=== PATIENT | female | born 1995 | race Caucasian/White ===

== ENCOUNTER 2019-07-20 12:30 | Outpatient (RCR) | payer OTHER, SELFPAY ==
--- NOTE | 2019-04-22 08:47 | PTOPEVAL ---
PHYSICAL THERAPY EVALUATION AND PLAN OF CARE 04-22-2019 The evaluation was completed today for the diagnosis of s/p R shoulder arthroscopy. The plan of treatment is scheduled for 1-2 x/week for 6 weeks, then she will require a re-evaluation for insurance authorization for treatment. Treatment will follow the protocol provided. Thank you for referring Ms. Whitfield to [facility]. Please review, sign, date and return this plan of care CARA. I agree with and certify that the following plan of care is medically necessary. Referring Physician Date Attending Provider: Dr. Ronn Lei *PT Outpatient Evaluation Start: 04/22/19 07:42 Document 04/22/19 07:42 JOSE LUIS (Rec: 04/22/19 08:42 JOSE LUIS [id number]) Outpatient Past Medical History Neurological History Hx Neurological Disorders No Significant History Cardiovascular History Hx Cardiac Disorders No Significant History Respiratory History Hx Respiratory Disorders No Significant History Gastrointestinal History Hx Gastrointestinal Disorders No Significant History Genitourinary History Hx Genitourinary Disorders No Significant History Musculoskeletal History Hx Other Musculoskeletal Disorders Yes: R shoulder pain since injury;obesity Hematological History Hx Hematological Disorders No Significant History Endocrine History Hx Endocrine Disorders No Significant History HEENT History Hx Tonsillectomy Yes: as child Integumentary History Hx Skin Disorders No Significant History Reproductive History Hx Section Yes Hx Other Reproductive Disorders Yes: Evaluation Information Problem Diagnosis R shoulder arthroscopy Onset Apr 15, 2019 Subjective Information injury to shoulder August 25, Query Text:As Reported By Patient/ 2018, at work reaching out and Family lifting something; was on light duty at work; worked until prior to this surgery on light duty--no lift over 10#; pt stated per discharge instructions: dressing can be removed after 3 days; has been showering, with incision covered; wear sling and remove few times/day to move arm; continue ice use; Previous Treatments Previous Treatments For This Problem had one month PT after initial injury;not better, had MRI and injections Prior Level of Function Activity Level (Last 3 Months) 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
--- NOTE | 2019-05-11 11:46 | PCPTNOTE ---
Patient called & cancelled scheduled appointment this date no reason given
--- NOTE | 2019-05-18 11:56 | PCPTNOTE ---
Patient called & cancelled scheduled appointment this date no reason stated
--- NOTE | 2019-06-01 13:09 | PCPTNOTE ---
pt called and canceled today's treatment due to ill child;
[2019-06-03 12:35] VITALS: BP_SYST 110
--- NOTE | 2019-06-03 13:13 | PTOPEVAL ---
PHYSICAL THERAPY RE EVALUATION AND UPDATED PLAN OF CARE 06-03-2019 Rosette has received 7 Physical Therapy sessions, from April 22 to today, s/p R shoulder arthroscopy. She called/canceled 3 appointments due to a sick child. She has improved with decreased pain rating at the low and high ratings; increased sleep tolerance and increased ROM of all shoulder motions. Rosette has been receptive to education and doing her home exercises. 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 PT is to continue 1-2x/week for 5 weeks, with progression of activity and strengthening per protocol. Thank you for referring Ms. Whitfield to [facility]. Please review, sign, date and return this plan of care CARA. I agree with and certify that the following plan of care is medically necessary. Referring Physician Date Attending Provider: Dr. Ronn Lei *PT Outpatient Re-Evaluation Document 06/03/19 12:35 JOSE LUIS (Rec: 06/03/19 13:13 JOSE LUIS [id number]) Subjective Information Rosette reports: is not Query Text:As Reported By Patient/ wearing a bra, wearing Family bralette due to softer strap and more inward, so not hit across her shoulder; been using arm- have to with daily things and caring for her 3 yr old child; been doing exercises and stretching; electrical stim helps pain; taping helps too; Pain Assessment Timing of Pain Assessment Timing of Pain Assessment Assessment Pain Scale Pain Scale Used Numeric (1 - 10) Self Report Pain Assessment Right Shoulder(s) Reported Pain Level 4 Pain Description Aching,Sharp Radicular Pain Location tight over upper traps- discuss heat PRN use neck; anterior shoulder Pain Frequency Chronic Current Pain Intensity 4 Lowest Pain Intensity 3 Greatest Pain Intensity 8 Pain Level Goal 0 Pain Aggravating Factors Exercise/Activity Other Pain Aggravating Factors use of arm, end of the day Pain Behaviors Anxious Pain Relief Interventions Used By Ice,Inactivity/Rest,Medication Patient ,Support of Extremity Other Alleviating Interventions tylenol Additional Pain Comments awaken from sleep 2x/night due to shoulder pain; Pain Score Pain Score 4: Self Report Upper Extremity Range of Motion Scapular/ Shoulder Range of Motion Right Shoulder Flexion - Active 100 Shoulder Flexion - Passive 120 Shoulder Extension - Active 10 Shoulder Abduction - Active 80 Shoulder Abduction - Passive 110 Shoulder Medial Rotation - Active 40 Shoulder M
--- NOTE | 2019-06-23 13:09 | PCPTNOTE ---
Patient called & cancelled scheduled appointment this date stating she was unable to make it.
--- NOTE | 2019-06-25 16:08 | PCPTNOTE ---
Patient did not show up for scheduled appointment this date.
--- NOTE | 2019-07-06 11:39 | PCPTNOTE ---
pt called and canceled today's reevaluation;
--- NOTE | 2019-07-13 08:49 | PCPTNOTE ---
pt called and canceled today's reeval due to not having child care education coordinator; rescheduled for next week;
--- NOTE | 2019-07-20 13:13 | PTOPEVAL ---
PHYSICAL THERAPY REEVALUATION AND UPDATED PLAN OF CARE 07-20-2019 Ms. Ceja has received 11 PT sessions, from April 22 to today, s/p R shoulder surgery. She called and canceled 7 PT appointments. Compared to last reevaluation on 06-03-2019: pain rating at the worst rating is better/ lower rating the same; sleeping still disrupted 2-3x/night awakening due pain; active ROM and strength have increased in all shoulder ranges; with B UE Lifting, 8# was her maximum lift and with R only flexion and abduction was 2# hand wt. 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 PT is to continue 2x/week for 3 weeks, to further increase her R shoulder strength for return to work duties and decrease pain. Thank you for referring Rosette Whitfield to [facility]. Please review, sign, date and return this up dated plan of care [facility]. I agree with and certify that the following plan of care is medically necessary. Referring Physician Date Attending Provider: Dr. 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 [employer], lifting varies- at 50 # is supposed to ask for help Pain Assessment Timing of Pain Assessment Timing of Pain Assessment Assessment Pain Scale Pain Scale Used Numeric (1 - 10) Self Report Pain Assessment Right Shoulder(s) Reported Pain Level 4 Pain Description Dull Radicular Pain Location sharp pain anterior shoulder, more ache in the back of shoulder Pain Frequency Acute Lowest Pain Intensity 4 Greatest Pain Intensity 6 Other Pain Aggravating Factors end of day, push on R arm, lifting, use arm alot, unable to vacuum with R Pain Relief Interventions Used By Elevation,Heat,Ice,Medication Patient Other Alleviating Interventions at end session-stim & ice to ease pain Additional Pain Comments wearing bra OK; difficult to change baby's diaper;tylenol helps PRN take Pain Score Pain Score 4: Self Report Upper Extremity Range of Motion Scapular/ Shoulder Range of Motion Right Shoulder Flexion - Active
--- NOTE | 2019-07-26 15:27 | PCPTNOTE ---
This treatment is being continued on visit number [id number]. Please see documentation on both accounts to view progress. Completed interventions, outcomes, and problems have been marked as Inactive to facilitate the copying of the Care plan routine for recurring accounts.
== END 2019-07-21 23:59 | disposition home or self-care (01) ==
LOC: ANHPT 12:30
PROVIDERS: PCP Family Medicine
DX: M25.511 Pain in right shoulder (principal)
CPT/HCPCS: 97014; 97110; 97140; 97161; G0283

== ENCOUNTER 2019-08-18 13:30 | Outpatient (RCR) | payer OTHER, SELFPAY ==
[2019-07-22 00:04] VITALS: BP_SYST 110
--- NOTE | 2019-07-26 15:31 | PCPTNOTE ---
continue PT from previous # [id number]. plan of care and treatment continued onto this #; refer to both for her complete EMR;
--- NOTE | 2019-08-18 14:09 | PTOPEVAL ---
PHYSICAL THERAPY DISCHARGE 08-18-2019 Rosette has received a total of 14 PT sessions, from April 22 to today, s/p R shoulder surgery. She called and canceled a total of 8 appointments. Compared to the last reevaluation: pain rating at the high rating is the same and the least rating has improved from 4/10 to 2/10; reported sleeping and activity tolerance has improved; R shoulder AROM is WNL and strength has improved; B UE lifting from floor/waist height has improved from 8# to 20#; her home exercise program has been progressed to resistance/ strengthening activities. Ms. Whitfield is independent with her home exercises, is to continue with them and agrees to discharge from PT services. She reports that she has a release to return to work on August 29, but is not able to due to not having childhood teacher. Due to the [place] virus restrictions, her day care is full and not able to take her daughter. Thank you for referring Rosette Whitfield to [facility]. Please review, sign, date and return this discharge CARA. I agree with and certify that the following plan of care is medically necessary. Referring Physician Date Admitting Provider: Attending Provider: Dr. Ronn Lei Document 08/18/19 13:30 JOSE LUIS (Rec: 08/18/19 14:02 JOSE LUIS [id number]) Assessment Status Discharge Subjective Information Roestte reports: hurt shoulder Query Text:As Reported By Patient/ , sore today due to moving Family furniture, got a new mattress; problems with vacuuming and not able to burr picker 45# daughter; have a work release for August 29, but not able to return to work due to not having childcare- due to coronavirus, dayasae cannot take her child; agrees to discharge from PT and to continue with her exercises at home, with hand wt or theraband. Pain Assessment Timing of Pain Assessment Timing of Pain Assessment Assessment Pain Scale Pain Scale Used Numeric (1 - 10) Self Report Pain Assessment Right Shoulder(s) Reported Pain Level 4 Pain Description Soreness Pain Frequency Chronic Lowest Pain Intensity 2 Greatest Pain Intensity 6 Pain Aggravating Factors Exercise/Activity,Lifting Other Pain Aggravating Factors vacuuming about 5 min, not able to lift 45# daughter Pain Relief Interventions Used By Elevation,Heat,Ice,Position Patient Change Other Alleviating Interventions with kitchen tasks- switch R/L arm due to shoulder pain Additional Pain Comments awaken from sleep 1-2x/night due shoulder pain; Pain Score
== END 2019-08-19 08:44 | disposition home or self-care (01) ==
LOC: ANHPT 13:30
PROVIDERS: PCP Family Medicine
DX: M25.511 Pain in right shoulder (principal)
CPT/HCPCS: 97110

== ENCOUNTER 2019-12-20 11:46 | Emergency (ER) | payer OTHER, SELFPAY ==
[2019-12-20 12:37] VITALS: BP 142/85; PULSE 82; RESP 15; TEMP 36.5; O2SAT 100
[2019-12-20 12:50] LABS: Basophils Percent Auto 0.3 % (0.2-1.2); Eosinophils Absolute Auto 0.2 K/mm3 (0-0.3); Eosinophils Percent Auto 3.7 % (0-4.4); Hematocrit 36.5 % (37.0-47.0); Hemoglobin 12.3 g/dL (12.0-15.0); Immature Granulocyte Absolute 0.02 K/mm3 (0.00-0.031); Immature Granulocyte Percent A 0.3 % (0-0.5); Lymphocytes Absolute Auto 1.27 K/mm3 (0.9-3.2); Lymphocytes Percent Auto 20.7 % (18.3-44.2); Mean Corpuscular HGB Conc 33.7 g/dl (32-36); Mean Corpuscular Hemoglobin 28.7 pg (26-34); Mean Corpuscular Volume 85.3 fl (80-100); Mean Platelet Volume 11.6 fl (7.4-10.4); Monocytes Absolute Auto 0.5 K/mm3 (0.1-0.6); Monocytes Percent Auto 7.7 % (2.6-8.5); Neutrophils Absolute Auto 4.1 K/mm3 (1.3-6.7); Neutrophils Percent Auto 67.3 % (45.5-73.1); Platelet Count Result 197 k/mm3 (150-375); Red Blood Count 4.28 M/mm3 (4.2-5.4); Red Cell Distribution Width 13.2 % (11.5-14.5); White Blood Count 6.1 K/mm3 (4.5-10.0)
[2019-12-20 12:56] LABS: Add Urine Microscopic? YES; Appearance Urine Cloudy (Clear); Bacteria Urine Trace /hpf; Bilirubin Urine Negative (Negative); Blood Urine Negative (Negative); Color Urine Yellow (Yellow); Glucose Urine UA Negative (Negative); Ketones Urine Negative (Negative); Leukocyte Esterase Ur Trace LEU/UL (Negative); Mucus Urine Rare /lpf; Nitrate Urine Negative (Negative); Protein Urine Negative (Negative); RBC Urine 0-2 /hpf (0-2); Specific Grav Ur 1.021 (1.001-1.035); Squamous Epithelial Cell Urine Many /hpf (Few); Urobilinogen Urine Negative mg/dL (<2.0)
[2019-12-20 13:01] LABS: Alanine Aminotransferase 10 U/L (4-35); Albumin Level 4.1 g/dL (3.5-5.1); Alkaline Phosphatase 83 U/L (38-126); Anion Gap 6 mmol/L (8-16); Aspartate Amino Transferase 15 U/L (14-36); Bilirubin,Total 0.4 mg/dL (0.2-1.3); Blood Urea Nitrogen 5 mg/dL (7-17); Calcium 9.5 mg/dL (8.4-10.2); Carbon Dioxide 24 mmol/L (22-30); Chloride 103 mmol/L (98-107); Estimated CRCL calculation 168 ml/min; Estimated Glomerular Filt Rate > 60; Glucose 96 mg/dL (65-105); Lipase 58 U/L (23-300); Potassium 4.4 mmol/L (3.4-5.0); Sodium 133 mmol/L (137-145)
[2019-12-20 13:45] VITALS: BP 146/84; PULSE 70; RESP 16; TEMP 36.6; O2SAT 100
[2019-12-20] MEDS: METOCLOPRAMIDE HCL INJ 10 MG/2 ML VIAL IV PUSH (14:25)
[2019-12-20] MEDS: SODIUM CHLORIDE 0.9% IV 1,000 ML 999 ML IV CONT (14:26)
--- NOTE | 2019-12-20 15:50 | ED.GENADULT ---
HPI - General Adult General Chief complaint: Nausea/Vomiting/Diarrhea Stated complaint: morning sickness Time Seen by Provider: 12/20/19 14:12 Source: patient History of Present Illness HPI narrative: Patient is a 24 y/o female complaining of nausea and vomiting for 1 month. She states that she vomits 1-2 times per day. She vomits mostly food material. She is 10 week . She was given Reglan and Zofran, which does not help much. She has no abdominal pain, diarrhea or vaginal bleeding. Related Data Home Medications Medication Instructions Recorded Confirmed PNV cmb#95-ferrous fumarate-FA 1 tablet PO DAILY 12/20/19 [] ondansetron HCl [Zofran] 4 mg PO Q6H PRN 12/20/19 Allergies Allergy/AdvReac Type Severity Reaction Status Date / Time No Known Allergies Allergy Verified 02/01/19 19:21 Review of Systems Constitutional: Constitutional: Denies chills, Denies fever(s), Denies headache(s) and Denies weakness Eyes: Eyes: Denies blurry vision ENT: Denies headache(s) and Denies neck pain Cardiovascular: Cardiovascular: Denies chest pain and Denies dyspnea Respiratory: Respiratory: Denies cough and Denies dyspnea Gastrointestinal: Gastrointestinal: Denies abdominal pain, Denies diarrhea, Reports nausea and Reports vomiting Genitourinary: Genitourinary: Denies hematuria and Denies dysuria Musculoskeletal: Musculoskeletal: Denies back pain and Denies neck pain Neurologic: Denies headache(s) and Denies weakness PMFSH Social History Social History Gender identity (if verbalized by the patient): Female Exam Const: General: no acute distress and well developed Orientation/consciousness: oriented to person, oriented to place, oriented to time and patient oriented x3 HENMT: Head: normocephalic Ears: external ears normal General nose exam: Normal external nose present Eyes: General: appearance normal, both eyes and all related structures Conjunctivae: conjunctivae normal Neck: Neck: normal visual inspection and full ROM Chest: Chest palpation & inspection: normal inspection of the chest and no tenderness Resp: Effort & Inspection: normal respiratory effort Auscultation: clear to auscultation bilaterally Cardio: Rate: regular rate Rhythm: regular rhythm GI: GI Palp: No abdominal tenderness and Yes Soft to palpation Skin: General skin exam: normal color and turgor normal Neuro: General: oriented to person, oriented to place, oriented to time and patient oriented x3 Cognition (Neuro): normal cognition Extrem: General: normal to inspection, full ROM and no pedal edema Psych: Appearance: grossly normal Mental Status: mental status grossly normal Affect: normal affect Course Reevaluation(s) Reevaluation #1: Rechecked. Patient feels better. She is able tolerate oral intake without vomiting. She still has meds at home for nausea and vomiting. Date: 12/20/19 Time: 16:00 Vital Signs Vital signs: Vital Signs Temperature 36.5 C 12/20/19 12:37 Pulse Rate 82 12/20/19 12:37 Respiratory Rate 15 12/20/19 12:37 Blood Pressure 142/85 H 12/20/19 12:37 Pulse Oximetry 100 12/20/19 12:37 Temperature 36.6 C 12/20/19 13:45 Pulse Rate 85 12/20/19 16:13 Respiratory Rate 18 12/20/19 16:13 Blood Pressure 135/82 12/20/19 16:13 Pulse Oximetry 100 12/20/19 16:13 Medical Decision Making Vital Signs Vital Signs: Vital Signs Temperature 36.5 C 12/20/19 12:37 Pulse Rate 82 12/20/19 12:37 Respiratory Rate 15 12/20/19 12:37 Blood Pressure 142/85 H 12/20/19 12:37 Pulse Oximetry 100 12/20/19 12:37 Temperature 36.6 C 12/20/19 13:45 Pulse Rate 85 12/20/19 16:13 Respiratory Rate 18 12/20/19 16:13 Blood Pressure 135/82 12/20/19 16:13 Pulse Oximetry 100 12/20/19 16:13 Lab Data Result diagrams: 12/20/19 12:42 12/20/19 12:42 Labs: Lab Results
[2019-12-20 16:13] VITALS: BP 135/82; PULSE 85; RESP 18; O2SAT 100
== END 2019-12-20 16:14 | disposition home or self-care (01) ==
PROVIDERS: Emergency Medicine; Emergency Provider Emergency Medicine; PCP Family Medicine
DX: O21.0 Mild hyperemesis gravidarum (principal); Z3A.10 10 weeks gestation of pregnancy
CPT/HCPCS: 36415; 80053; 81001; 81025; 83690; 85025; 96361; 96374; 99284; J2765; J7030

== ENCOUNTER 2020-04-16 07:40 | Outpatient (RCR) | payer OTHER, SELFPAY ==
[2020-04-14 16:02] LABS: Hematocrit 31.8 % (37.0-47.0); Hemoglobin 10.7 g/dL (12.0-15.0)
[2020-04-14 16:13] LABS: Glucose 1 Hour PP 50gm Dose 160 mg/dL
[2020-04-14 16:55] LABS: HIV 1/2 Ab P24 Ag Result Negative (Negative)
[2020-04-16] MEDS: RHO(D) IMMUNE GLOBULIN 300 MCG SYRINGE IM (12:02)
[2020-04-17 09:05] LABS: Rapid Plasma Reagin Non-Reactive (NonReactive)
== END 2020-04-16 07:41 | disposition home or self-care (01) ==
LOC: ANHLAB 07:40
PROVIDERS: PCP Family Medicine; Visit Provider Obstetrics & Gynecology
DX: Z29.13 Encounter for prophylactic Rho(D) immune globulin (principal); Z11.4 Encounter for screening for human immunodeficiency virus [HIV]; O36.0130 Maternal care for anti-D [Rh] antibodies, third trimester, not applicable or unspecified; Z3A.00 Weeks of gestation of pregnancy not specified
CPT/HCPCS: 36415; 82947; 85014; 85018; 86592; 86703; 86850; 86900; 86901; 90384; 96372; G0432; J2790

== ENCOUNTER 2020-05-20 15:45 | Outpatient (RCR) | payer OTHER, SELFPAY ==
[2020-05-20 16:15] VITALS: BP 108/65; PULSE 82
== END 2020-06-30 07:13 | disposition home or self-care (01) ==
LOC: ANHOBOP 15:45
PROVIDERS: PCP Family Medicine; Visit Provider Obstetrics & Gynecology
DX: O36.8130 Decreased fetal movements, third trimester, not applicable or unspecified (principal); Z3A.32 32 weeks gestation of pregnancy
CPT/HCPCS: 59025

== ENCOUNTER 2020-06-08 16:00 | Observation (INO) | payer OTHER, SELFPAY ==
[2020-06-08] VITALS (29 sets, daily range): BP systolic 111–126; BP diastolic 63–78; PULSE 85–186; RESP 18; TEMP 36.6; O2SAT 94–100; BMI 52.4
--- NOTE | ~2020-06-08 | US_ITS ---
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 arrhythmia. TECHNIQUE: Real-time transabdominal obstetric ultrasound. FINDINGS: No prior studies for comparison. There is a single living fetus in vertex presentation. The placenta is posterior without placenta pr evia. cardiac activity and movement is noted with a heart rate of 154 beats per minute. Biophysical profile: breathin of 2 movement: 2 of 2 tone: 2 of 2 Amniotic flud pocket: 2 of 2 Total score: 8 of 8 IMPRESSION: 1. Single living intrauterine in vertex presentation. 2: Total biophysical profile score of 8/8. Reviewed, dictated and finalized at location A. ING AND EMBOSSING UNIT OPERATOR
--- NOTE | 2020-06-08 16:00 | OBADM ---
This patient, Rosette Whitfield, admitted to the OB room OB Post 117 for observation. Patient/family oriented to hospital policies and general routines including ID bracelet, bed and alarms, visiting hours, pain management, procedures, bathroom and other care routines, personal items, smoking policy, room service/diet, and visiting hours. Patient/Family are encouraged to report perceived risks to care and to ask questions if they do not understand what they are told or what they should do.
--- NOTE | 2020-06-08 19:05 | PM.IMHP ---
H&P: HPI History of Present Illness Date/Time: 06/08/20 19:05 This patient is a 25-year-old 2 para 1001 at 34 and 6 7 weeks who presents for monitoring. She was observed to have an abnormal heart rate tracing in the office. She was having periods of near bradycardia with minimal variability and mixed with normal rate and reactivity. Upon admission to labor and delivery she was observed having a heart rate tracing with tachycardia. There was rate of approximately 220. She also had 2 other short episodes of a heart rate of approximately 220 beats per minute. She denies any nausea, vomiting, fever, chills. She denies any chest pain or shortness of breath. She had a ultrasound evaluation that showed a BPP of 8/8. Chief Complaint: bradycardia Review of Systems Constitutional: Constitutional: Reports no additional constitutional complaints, Denies fatigue, Denies headache(s), Denies lethargy and Denies weakness Eyes: Eyes: Reports no additional eye complaints, Denies blurry vision and Denies photophobia ENT: Reports as per HPI, Denies headache(s) and Denies neck pain Cardiovascular: Cardiovascular: Denies chest pain, Denies diaphoresis, Denies leg edema, Denies palpitations and Denies dyspnea Respiratory: Respiratory: Denies hemoptysis, Denies dyspnea and Denies wheezing Gastrointestinal: Gastrointestinal: Denies abdominal pain, Denies melena, Denies bloating, Denies hematochezia, Denies nausea and Denies vomiting Genitourinary: Genitourinary: Reports no additional female genitourinary complaints Musculoskeletal: Musculoskeletal: Denies joint swelling, Denies neck pain, Denies numbness and Denies stiffness Neurologic: Denies Abnormal speech present, Denies confusion, Denies headache(s), Denies numbness and Denies weakness Psychiatric: Psychiatric: Denies anxiety, Denies confusion, Denies depression, Denies homicidal ideation and Denies suicidal ideation Endocrine: Endocrine: Denies fatigue and Denies palpitations Allergic/Immunologic: Allergic/Immunologic: Denies wheezing [facility] Social History Social History Gender identity (if verbalized by the patient): Female Meds Home Medications and Allergies Home Medications Medication Instructions Recorded Confirmed Type ondansetron HCl [Zofran] 4 mg PO Q6H PRN 12/20/19 06/08/20 History famotidine 06/08/20 History ferrous sulfate [iron] 325 mg PO DAILY 06/08/20 06/08/20 History Allergies Allergy/AdvReac Type Severity Reaction Status Date / Time No Known Allergies Allergy Verified 06/08/20 17:08 Vital Signs Vital Signs - 24 hr 06/08/20 16:21 06/08/20 16:31 06/08/20 16:40 Temperature 97.9 F Pulse Rate 87 90 Respiratory Rate 18 Blood Pressure 111/68 118/74 Pulse Oximetry 99 06/08/20 16:46 06/08/20 17:01 06/08/20 17:16 Temperature Pulse Rate 96 86 91 Respiratory Rate Blood Pressure 123/76 122/70 123/71 Pulse Oximetry 06/08/20 17:18 06/08/20 17:23 06/08/20 17:28 Temperature Pulse Rate Respiratory Rate Blood Pressure Pulse Oximetry 94 98 96 06/08/20 17:31 06/08/20 17:32 06/08/20 17:41 Temperature Pulse Rate 90 Respiratory Rate Blood Pressure 123/67 Pulse Oximetry 97 98 06/08/20 17:46 06/08/20 17:51 06/08/20 17:56 Temperature Pulse Rate 89 Respiratory Rate Blood Pressure 118/71 Pulse Oximetry 97 99 98 06/08/20 18:01 06/08/20 18:06 06/08/20 18:11 Temperature Pulse Rate 89 Respiratory Rate Blood Pressure 126/78 Pulse Oximetry 99 100 99 06/08/20 18:16 06/08/20 18:21 06/08/20 18:26 Temperature Pulse Rate 95 Respiratory Rate Blood Pressure 116/63 Pulse Oximetry 100 100 100 06/08/20 18:31 06/08/20 18:36 06/08/20 18:41 Temperature Pulse Rate 90 Respiratory Rate Blood Pressure 126/74 Pulse Oximetry 100 99 99 06/08/20 18:46 06/08/20 18:51 06/08/20 1
== END 2020-06-08 19:23 | disposition home or self-care (01) ==
PROVIDERS: Admitting Provider Obstetrics & Gynecology; PCP Family Medicine; Visit Provider Obstetrics & Gynecology
DX: O36.8330 Maternal care for abnormalities of the fetal heart rate or rhythm, third trimester, not applicable or unspecified (principal); Z3A.34 34 weeks gestation of pregnancy
CPT/HCPCS: 76819; G0378; G0379

== ENCOUNTER 2020-06-10 16:34 | Outpatient (CLI) | payer OTHER, SELFPAY ==
[2020-06-10] MEDS: BETAMETHASONE SOD PHOS/ACETATE 30 MG/5 ML VIAL 12 MG IM (16:57)
== END 2020-06-10 16:35 | disposition home or self-care (01) ==
PROVIDERS: PCP Family Medicine; Visit Provider Obstetrics & Gynecology
DX: Z34.90 Encounter for supervision of normal pregnancy, unspecified, unspecified trimester (principal); Z3A.00 Weeks of gestation of pregnancy not specified
CPT/HCPCS: 96372; J0702

== ENCOUNTER 2021-03-22 15:34 | Outpatient (CLI) | payer OTHER, SELFPAY ==
[2021-03-22 15:54] LABS: Basophils Percent Auto 0.2 % (0.2-1.2); Eosinophils Absolute Auto 0.2 K/mm3 (0-0.3); Eosinophils Percent Auto 2.3 % (0-4.4); Hematocrit 35.7 % (37.0-47.0); Hemoglobin 11.9 g/dL (12.0-15.0); Immature Granulocyte Absolute 0.03 K/mm3 (0.00-0.031); Immature Granulocyte Percent A 0.4 % (0-0.5); Lymphocytes Absolute Auto 2.06 K/mm3 (0.9-3.2); Lymphocytes Percent Auto 24.6 % (18.3-44.2); Mean Corpuscular HGB Conc 33.3 g/dl (32-36); Mean Corpuscular Hemoglobin 28.1 pg (26-34); Mean Corpuscular Volume 84.4 fl (80-100); Mean Platelet Volume 10.7 fl (7.4-10.4); Monocytes Absolute Auto 0.5 K/mm3 (0.1-0.6); Monocytes Percent Auto 6.1 % (2.6-8.5); Neutrophils Absolute Auto 5.6 K/mm3 (1.3-6.7); Neutrophils Percent Auto 66.4 % (45.5-73.1); Platelet Count Result 233 k/mm3 (150-375); Red Blood Count 4.23 M/mm3 (4.2-5.4); Red Cell Distribution Width 13.1 % (11.5-14.5); White Blood Count 8.4 K/mm3 (4.5-10.0)
[2021-03-22 16:09] LABS: CRP 1.5 mg/dL (<1.0)
[2021-03-22 16:46] LABS: Erythrocyte Sedimentation Rate 42 mm/hr (0-20)
== END 2021-03-22 15:35 | disposition home or self-care (01) ==
PROVIDERS: PCP Family Medicine; Visit Provider Orthopaedic Surgery Sports Medicine
DX: M25.511 Pain in right shoulder (principal); G89.29 Other chronic pain; Z98.890 Other specified postprocedural states
CPT/HCPCS: 36415; 85025; 85652; 86140

== ENCOUNTER 2022-05-01 09:50 | Outpatient (CLI) | payer OTHER, SELFPAY ==
--- NOTE | ~2022-05-01 | XR_ITS ---
EXAMINATION: XR shoulder RT min 2V DATE: 05/01/2022 12:47 INDICATION: Right shoulder pain. TECHNIQUE: 4 views of right shoulder were obtained. COMPARISON: Right shoulder radiographs 08/12/2016 FINDINGS: Bone alignment is normal. No fracture. Joint spaces are well maintained. IMPRESSION: 1. Normal right shoulder. Reviewed, dictated and finalized at location A. RINTENDENT PLANT IMPRESSION: 1. Normal right shoulder.
--- NOTE | ~2022-05-01 | XR_ITS ---
EXAMINATION: XR foot LT min 3V DATE: 05/01/2022 12:48 INDICATION: Left foot pain. TECHNIQUE: 4 views of left foot were obtained. COMPARISON: Left foot radiograph 08/31/2017 FINDINGS: Bone alignment is normal. No fracture. Joint spaces are well maintained. IMPRESSION: 1. Normal left foot. Reviewed, dictated and finalized at location A. FRAME CONSTRUCTION WORKER IMPRESSION: 1. Normal left foot.
== END 2022-05-01 09:51 | disposition home or self-care (01) ==
PROVIDERS: PCP Physician Assistant; Visit Provider Physician Assistant
DX: M79.672 Pain in left foot (principal); M25.511 Pain in right shoulder
CPT/HCPCS: 73030; 73630

== ENCOUNTER 2022-05-29 10:00 | Outpatient (RCR) | payer OTHER, SELFPAY ==
[2022-05-07 09:05] VITALS: BP_SYST 155
--- NOTE | 2022-05-07 09:43 | PTOPEVAL1 ---
Assessment and note entered by Sona Gonzalez, PT Evaluation Information Assessment Status Evaluation Diagnosis R shoulder pain Onset Mar 2022 Subjective Information no recent injury or trauma to shoulder, gradual increase in pain; lifting daughter who is 25#, carrying laundry; recent x ray was negative; Reported Pain Level Pain Score Self Report Additional Pain Score Comments pain range of 2-8/10; R shoulder--rubbing bones and hurts, sore, aching,pain anterior shoulder sharp into anterior humerus; increase with lifting daughter, home tasks, moving arm continuously; decrease pain with ice, prop arm on pillow; problems falling asleep- prop arm up, once asleep, can sleep through night; Assessment PT Clinical Summary Rosette has the diagnosis of R shoulder pain. She has a history of 2 shoulder surgeries in 2019 and May 2021- repair labral tear. She reports pain is increased with lifting her daughter, home activities and repeated use of R arm. With the evaluation, she has slight decrease in R shoulder flexion and abduction ROM with pain at end ranges, with decreased strength and poor standing position of shoulder and thoracic spine. Skilled PT services are indicated for modalities to decrease pain, therapeutic exercises to strengthen scapular-thoracic musculature and education for home exercises and posture correction. Plan of Care Interventions Electrical Stimulation,Hot Pack/Cold Pack,Manual Therapy,Patient/Caregiver Education,Therapeutic Activities,Therapeutic Exercise,Ultrasound,Other Other Interventions taping PT Services Indicated Yes Treatment Frequency and 2x/wk for 3 weeks Duration These treatments will address the objective and functional deficits as defined above. The patient will be advanced safely and appropriately in order for the patient to progress towards his/her prior level of function. Additional exercises will be introduced and as well as a comprehensive home exercise program upon discharge, if needed, ?to ensure carryover of functional gains achieved in the clinic. This treatment plan has been reviewed and agreement upon by the patient.
--- NOTE | 2022-05-23 08:11 | PCPTNOTE ---
Pt cancelled due to illness.
--- NOTE | 2022-05-29 10:41 | PTOPDC ---
Assessment and note entered by Sona Gonzalez, PT Evaluation Information Assessment Status Discharge Diagnosis R shoulder pain Onset Mar 2022 Subjective Information Rosette reports: more soreness and pain in shoulder past few days; uncomfortable with sleeping and picking up her daughter; can use R arm with home activities about 1 hour; can hold daughter about 10 minutes, then shoulder pain worse and have to stop; feel like posture is better and watching it more; am doing the exercises at home; PAIN: pain range of 2-7/10; tender and pain over anterior shoulder; increase pain with use of arm, sleeping on it- awaken from sleep at least 2x/ night; decrease pain with ice, electrical stim, heat, rest, ibuprofen; discussed home stim unit-- placement of pads, she will see about obtaining one for home use; Reported Pain Level Pain Score Self Report Additional Pain Score Comments pain range of 2-7/10; tender and pain over anterior shoulder; increase pain with use of arm, sleeping on it- awaken from sleep at least 2x/ night; decrease pain with ice, electrical stim, heat, rest, ibuprofen; discussed home stim unit-- placement of pads, she will see about obtaining one for home use; Assessment PT Clinical Summary Rosette has received 6 PT sessions. Compared to the initial evaluation: pain rating at the low rating is the same 2/10 and high rating decreased from 8 to 7/10; continues to have pain with sleeping, awakening from pain and with use of R arm; active Shoulder flexion and abduction ranges have increased, but abduction still increases her pain; flexion no longer painful motion; shoulder strength and posture have improved; she has been educated on HEP and pain management techniques. The goals were partially achieved. Discharge PT services. She is to continue with her home exercises. And to have a follow up appointment with her provider. Plan of Care PT Services Indicated No
== END 2022-05-29 16:10 | disposition home or self-care (01) ==
LOC: ANHPT 10:00
PROVIDERS: PCP Physician Assistant; Visit Provider Physician Assistant
DX: M25.511 Pain in right shoulder (principal)
CPT/HCPCS: 97014; 97110; 97140; 97161; G0283

== ENCOUNTER 2023-03-31 09:20 | Emergency (ER) | payer OTHER, SELFPAY ==
[2023-03-31 09:24] VITALS: BP 139/94; PULSE 76; RESP 20; TEMP 36.4; O2SAT 100
--- NOTE | 2023-03-31 09:37 | ED.DENTAL ---
HPI - Dental/Oral General Chief complaint: Dental/Oral Stated complaint: dental pain Time Seen by Provider: 03/31/23 09:29 Source: patient Mode of arrival: ambulatory Limitations: no limitations History of Present Illness HPI Narrative: Rosette is a 27-year-old female patient presenting to the ER today with complaints of left upper dental pain. States that she has a hole in her 1st molar to the top left. States that this has been going on for over a month. Does not have a dentist appointment instill April 28. Related Data Home Medications Medication Instructions Recorded Confirmed ondansetron HCl 4 mg tablet 4 mg PO Q6H PRN Nausea 12/20/19 06/08/20 (Zofran) famotidine 40 mg tablet (Pepcid) 40 mg PO DAILY 06/08/20 06/08/20 ferrous sulfate 325 mg (65 mg 325 mg PO DAILY 06/08/20 06/08/20 iron) tablet (iron) Allergies Allergy/AdvReac Type Severity Reaction Status Date / Time No Known Allergies Allergy Verified 03/31/23 09:36 Review of Systems Review of Systems: Pertinent positives per HPI. Patient denies any fever, chills, rash, headache, visual changes, dizziness, cough, runny nose, sore throat, shortness of breath, chest pain, palpitations, nausea, vomiting, diarrhea, constipation, abdominal pain, or any urinary issues. PMFSH Social History Social History Gender identity (if verbalized by the patient): Female Comments At the time of my signature, I reviewed and agree with the nursing past medical, surgical, social, and family history. There is no relevant family history pertinent to the patient complaint. Exam Narrative: General: Well-developed, well nourished, in no apparent distress Head: Normocephalic, atraumatic Eyes: Pupils equally round and reactive to light bilaterally, EOM intact, sclera and conjunctive clear, no discharge, lids normal Ears: TMs intact and clear, ear canals clear, no drainage, grossly hearing normal. Nose: Nares patent, no discharge, no inflammation, no sinus tenderness. Mouth: Oropharynx without lesions or masses, for dentition, MMM. Dental decay to left upper 1st premolar with mild swelling around the gums, no palpable abscess Neck: Supple, trachea midline, no enlargement of anterior or posterior cervical nodes, no thyroid masses or goiter palpable. Cardio: Regular rate and rhythm, s1 and s2 normal, no murmur appreciated. Resp: Clear to auscultation bilaterally anteriorly and posteriorly, no rhonchi, rales, wheezing or rubs Course Course Emergency Course: Portions of this record may have been created with voice recognition software. Vital Signs Vital signs: Vital Signs Temperature 36.4 C L 03/31/23 09:24 Pulse Rate 76 03/31/23 09:24 Respiratory Rate 20 03/31/23 09:24 Blood Pressure 139/94 H 03/31/23 09:24 Pulse Oximetry 100 03/31/23 09:24 Oxygen Delivery Room Air 03/31/23 09:24 Temperature 36.4 C L 03/31/23 09:24 Pulse Rate 76 03/31/23 09:24 Respiratory Rate 20 03/31/23 09:24 Blood Pressure 139/94 H 03/31/23 09:24 Pulse Oximetry 100 03/31/23 09:24 Oxygen Delivery Room Air 03/31/23 09:24 Vital signs reviewed MDM - Dental/Oral MDM Narrative Medical decision making narrative: At the time of visit patient is resting comfortably on the exam table. Patient appears to be nontoxic. Prescription for amoxicillin and ibuprofen was sent to the pharmacy. Recommend following up with her dentist as soon as possible. supportive measures were discussed with the patient and they voiced understanding discharge instructions and agrees to treatment plan. Return precautions reviewed Differential Diagnosis Differential diagnosis: Likely gingival abscess, dental caries, toothache, dental abscess and fracture of tooth Discharge Plan Discharge Clinical Impression: Dental infection Patient Disposition: Home, Self-Care Condition: Stable Instructions: An
== END 2023-03-31 09:51 | disposition home or self-care (01) ==
LOC: ANHED 09:42
PROVIDERS: Emergency Provider Nurse Practitioner Family; PCP Physician Assistant
DX: K04.7 Periapical abscess without sinus (principal)
CPT/HCPCS: 99283

== ENCOUNTER 2023-07-30 14:44 | Emergency (ER) | payer OTHER, SELFPAY ==
[2023-07-30 14:55] VITALS: BP 135/74; PULSE 93; RESP 18; TEMP 37; O2SAT 100
[2023-07-30 14:57] VITALS: BP 135/74; PULSE 93; RESP 18; TEMP 37; O2SAT 100
--- NOTE | 2023-07-30 15:06 | ED.URI ---
HPI - URI/Sore Throat General Chief Complaint: Upper Respiratory Infection Stated Complaint: Sore throat Time Seen by Provider: 07/30/23 15:06 Source: patient Mode of arrival: ambulatory Limitations: no limitations History of Present Illness HPI Narrative: 28-year-old female presents complaint of sore throat, swollen glands, pain with swallowing, fatigue for 4 days. Afebrile. Denies nausea vomiting. All systems reviewed and negative except as noted above. Related Data Home Medications Medication Instructions Recorded Confirmed atomoxetine 100 mg capsule mg PO 07/30/23 (Strattera) buspirone 15 mg tablet mg 07/30/23 Allergies Allergy/AdvReac Type Severity Reaction Status Date / Time No Known Allergies Allergy Verified 07/30/23 14:56 Review of Systems Review of Systems: CONSTITUTIONAL: Denies fever, chills, or sweats. reports fatigue. EYES: Denies visual changes, redness, or discharge. ENT: Denies rhinorrhea, congestion . Reports sore throat. Denies otalgia. CARDIOVASCULAR: Denies chest pain, palpitations, or edema. RESPIRATORY: Denies cough or dyspnea. GASTROINTESTINAL: Denies abdominal pain, nausea, vomiting, or diarrhea. GENITOURINARY: Denies dysuria or hematuria. SKIN: Denies rash or itching. MUSCULOSKELETAL: Denies back pain, joint pain, or myalgia. NEUROLOGIC: Denies headache, numbness, or weakness. PSYCHIATRIC: Denies anxiety or depression. All other systems reviewed are negative, except as documented in HPI. PMFSH Social History Social History Gender identity (if verbalized by the patient): Female Comments At time of signature, agree with nursing past medical, surgical, social and family history. There is no relevant family history pertinent to the presenting complaint. Exam Narrative: GENERAL: This is a well-nourished, well-developed patient, in no apparent distress. HEAD: normocephalic, atraumatic. EYES: PERRL. Sclera clear/white. Vision is grossly intact. EARS: External ears normal, auditory canals clear and without drainage, TMs normal without perforation. Hearing grossly intact. NOSE: External nose normal with no obvious nasal discharge, nares without redness, no rhinorrhea. THROAT: Mucous membranes moist, Erythema, swelling. No exudates. NECK: Neck supple, non-tender without lymphadenopathy, masses or thyromegaly. CARDIOVASCULAR: Regular rate and rhythm without murmurs, gallops, or rubs. RESPIRATORY: Clear to auscultation. Breath sounds equal bilaterally. No wheezes, rales, or rhonchi. SKIN: warm, Dry, intact with no suspicious lesions or rash, good texture and turgor. NEURO: awake, alert, and oriented to person, place and time. There were no obvious focal neurologic abnormalities. EXTREMITIES: No joint tenderness, effusion, or edema noted. Course Course Level of Care: Express Care Visit Vital Signs Vital signs: Vital Signs Temperature 37.0 C 07/30/23 14:55 Pulse Rate 93 07/30/23 14:55 Respiratory Rate 18 07/30/23 14:55 Blood Pressure 135/74 07/30/23 14:55 Pulse Oximetry 100 07/30/23 14:55 Oxygen Delivery Room Air 07/30/23 14:55 Temperature 37.0 C 07/30/23 14:57 Pulse Rate 93 07/30/23 14:57 Respiratory Rate 18 07/30/23 14:57 Blood Pressure 135/74 07/30/23 14:57 Pulse Oximetry 100 07/30/23 14:57 Oxygen Delivery Room Air 07/30/23 14:57 Reviewed MDM - URI/Sore Throat MDM Narrative Medical decision making narrative: positive rapid strep. Will treat with amoxicillin. Patient agrees with plan of care. Patient is aware of diagnosis, understands and agrees to treatment plan. Anticipatory guidance given. Patient agrees to follow-up as directed and is aware of reasons to seek care at the emergency department. Portions of this record may have been created with voice recognition software Differential Diagnosis Differential diagnosis: Likely pharyngi
== END 2023-07-30 15:17 | disposition home or self-care (01) ==
PROVIDERS: Emergency Provider Nurse Practitioner Family; PCP Physician Assistant
DX: J02.0 Streptococcal pharyngitis (principal)
CPT/HCPCS: 87880; 99213; G0463

== ENCOUNTER 2023-10-04 09:21 | Emergency (ER) | payer OTHER, SELFPAY ==
--- NOTE | ~2023-10-04 | XR_ITS ---
EXAMINATION: XR foot RT min 3V DATE: 10/04/2023 09:40 INDICATION: Right foot pain. TECHNIQUE: 4 views of right foot were obtained. COMPARISON: None. FINDINGS: Bone alignment is normal. No fracture. Joint spaces are normal. IMPRESSION: 1. No fracture. Reviewed, dictated and finalized at location A. IMPRESSION: 1. No fracture.
[2023-10-04 09:35] VITALS: BP 135/85; PULSE 74; RESP 15; TEMP 36.7; O2SAT 98
--- NOTE | 2023-10-04 10:22 | ED.GENADULT ---
HPI - General Adult General Chief complaint: Extremity Problem,Nontraumatic Stated complaint: R FOOT PAIN Time Seen by Provider: 10/04/23 09:41 History of Present Illness HPI narrative: Patient is a 20-year-old female who presents ER with right foot pain. She slept on it wrong and was tingling this morning and she got up bed and twisted it. She heard /felt a pop. She has been able to bear weight but it is painful. No numbness or tingling at this time. No additional injury. Related Data Home Medications Medication Instructions Recorded Confirmed atomoxetine 100 mg capsule mg PO 07/30/23 (Strattera) buspirone 15 mg tablet mg 07/30/23 Allergies Allergy/AdvReac Type Severity Reaction Status Date / Time No Known Allergies Allergy Verified 10/04/23 09:37 Review of Systems Constitutional: Constitutional: Reports no additional constitutional complaints Musculoskeletal: Musculoskeletal: Denies arthralgias, Denies joint swelling and Denies muscle cramps Neurologic: Reports system reviewed and no additional complaints, except as documented PMFSH Past Medical History Medical History (Updated 10/04/23 @ 10:26 by Ed Kruger MD) Healthy female adult Social History Social History Gender identity (if verbalized by the patient): Female Exam Narrative: GENERAL: Well-appearing, well-nourished, and in no acute distress. HEAD: Normocephalic, atraumatic. HEART: Regular rate and rhythm. Normal peripheral pulses. EXTREMITIES: Normal range of motion. TTP right midfoot w/o bruising/swelling. No edema. SKIN: Warm, dry, no rash. NEURO: Alert and oriented x3. PSYCH: Normal mood and affect. Course Course Emergency Course: patient informed of results. Discussed treatment plan including anti-inflammatories and postop shoe. Vital Signs Vital signs: Vital Signs Temperature 98.1 F 10/04/23 09:35 Pulse Rate 74 10/04/23 09:35 Respiratory Rate 15 10/04/23 09:35 Blood Pressure 135/85 10/04/23 09:35 Pulse Oximetry 98 10/04/23 09:35 Temperature 98.1 F 10/04/23 09:35 Pulse Rate 74 10/04/23 09:35 Respiratory Rate 15 10/04/23 09:35 Blood Pressure 135/85 10/04/23 09:35 Pulse Oximetry 98 10/04/23 09:35 Medical Decision Making Vital Signs Vital Signs: Vital Signs Temperature 98.1 F 10/04/23 09:35 Pulse Rate 74 10/04/23 09:35 Respiratory Rate 15 10/04/23 09:35 Blood Pressure 135/85 10/04/23 09:35 Pulse Oximetry 98 10/04/23 09:35 Temperature 98.1 F 10/04/23 09:35 Pulse Rate 74 10/04/23 09:35 Respiratory Rate 15 10/04/23 09:35 Blood Pressure 135/85 10/04/23 09:35 Pulse Oximetry 98 10/04/23 09:35 Imaging Data Radiologist's impression: ITS Impressions Foot X-Ray 10/04/23 09:43 IMPRESSION: 1. No fracture. Discharge Plan Discharge Clinical Impression: Foot sprain Patient Disposition: Home, Self-Care Condition: Stable Instructions: Foot Sprain (ED), P.R.I.C.E. Treatment (ED) Additional Instructions: Return to the ER if you suffered a new injury, you have fever over 100.4? F, you have chest pain with shortness of breath, or you have additional concerns. Prescriptions: New naproxen 375 mg tablet 375 mg PO BID Qty: 14 0RF No Action buspirone 15 mg tablet atomoxetine [Strattera] 100 mg capsule PO amoxicillin 500 mg capsule 500 mg PO Q12H 10 Days Qty: 20 0RF Follow-up/Referrals: May,MARCIA Rao [Primary Care Provider] - 1 Week
[2023-10-04] MEDS: IBUPROFEN 600 MG TABLET PO (10:39)
== END 2023-10-04 10:41 | disposition home or self-care (01) ==
PROVIDERS: Emergency Provider Emergency Medicine; PCP Physician Assistant
DX: S93.601A Unspecified sprain of right foot, initial encounter (principal); X50.0XXA Overexertion from strenuous movement or load, initial encounter
CPT/HCPCS: 73630; 99283; A9270

== ENCOUNTER 2023-11-09 11:00 | Emergency (ER) | payer OTHER, SELFPAY ==
--- NOTE | 2023-11-09 11:12 | ED.GENADULT ---
HPI - General Adult General Chief complaint: Upper Respiratory Infection Stated complaint: I think I have the Flu Time Seen by Provider: 11/09/23 11:12 Source: patient Mode of arrival: ambulatory Limitations: no limitations History of Present Illness HPI narrative: 28-year-old female patient presents to the [facility] with complaints of cold symptoms that started yesterday. Patient states she has been feeling very fatigued, body aches chills denies any high fevers. Patient states she has had some congestion will bit of a runny nose but denies coughing, chest pain shortness of breath. Denies abdominal pain, nausea, vomiting or diarrhea. Patient states that she has just been taking [id number] ibuprofen. 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 Related Data Home Medications Medication Instructions Recorded Confirmed atomoxetine 100 mg capsule 100 mg PO DAILY 07/30/23 11/09/23 (Strattera) buspirone 15 mg tablet 15 mg PO BID 07/30/23 11/09/23 Allergies Allergy/AdvReac Type Severity Reaction Status Date / Time No Known Allergies Allergy Verified 11/09/23 11:06 Review of Systems Review of Systems: CONSTITUTIONAL: Denies fever, positive body aches and chills, denies sweats. EYES: Denies visual changes, redness, or discharge. ENT: positive rhinorrhea, congestion, denies sore throat, or otalgia. CARDIOVASCULAR: Denies chest pain, palpitations, or edema. RESPIRATORY: positive cough , denies dyspnea. GASTROINTESTINAL: Denies abdominal pain, nausea, vomiting, or diarrhea. GENITOURINARY: Denies dysuria or hematuria. SKIN: Denies rash or itching. MUSCULOSKELETAL: Denies back pain, joint pain, or myalgia. NEUROLOGIC: Denies headache, numbness, or weakness. PSYCHIATRIC: Denies anxiety or depression. [facility] Past Medical History Medical History Healthy female adult Social History Social History Gender identity (if verbalized by the patient): Female Comments At the time of my signature I agree with nursing past medical history, surgical, social, and family history. There is no relevant family history pertinent to the presenting complaint. Exam Narrative: GENERAL: Well-appearing, well-nourished, and in no acute distress. HEAD: Normocephalic, atraumatic. EYES: PERRLA and EOMI. ENT: Nares clear, no rhinorrhea or epistaxis. Mucous membranes moist. posterior pharynx no erythema, tonsillar enlargement, exudates or lesions present. Bilateral TMs are clear no erythema or foreign bodies the canal. NECK: Supple. No lymphadenopathy CHEST: Clear to auscultation. No respiratory distress. HEART: Regular rate and rhythm. No murmur heard. Normal peripheral pulses. ABDOMEN: Soft, nontender, nondistended, normal active bowel sounds. EXTREMITIES: Normal range of motion. No edema. SKIN: Warm, dry, no rash. NEURO: No focal deficits. Alert and oriented x3. Course Course Level of Care: Express Care Visit Vital Signs Vital signs: Vital signs reviewed Medical Decision Making MDM Narrative Medical decision making narrative: Plan care patient is to discharge home with supportive therapy. Patient was negative today for influenza and COVID. Discussed with patient that per CDC guidelines she can return to work 1 symptom free and fever free for 24 hours. Differential Diagnosis Differential Diagnosis: differential diagnosis: Allergic rhinitis, chronic sinusitis, tonsillitis, acute sinusitis, infectious mononucleosis, seasonal influenza, pertussis, diphtheria, meningococcal disease, viral syndrome, viral bronchitis, RSV, COVID-19 Critical Care Time Critical Care Time Critical Care Time: No Discharge Plan Discharge Clinical Impression: Viral URI Patient Disposition: Home, Self-Care Condition: Stable Instructions: Antibiotic Form, Viral Syndrome (E
[2023-11-09 11:13] VITALS: BP 115/71; PULSE 68; RESP 18; TEMP 36.7; O2SAT 100
[2023-11-09 11:30] LABS: EDINFLUASCREEN Negative; EDINFLUBSCREEN Negative
== END 2023-11-09 11:31 | disposition home or self-care (01) ==
PROVIDERS: Emergency Provider Nurse Practitioner Family; PCP Physician Assistant
DX: J06.9 Acute upper respiratory infection, unspecified (principal); Z20.822 Contact with and (suspected) exposure to COVID-19
CPT/HCPCS: 87426; 87804; 99213; G0463

== ENCOUNTER 2024-01-14 19:49 | Emergency (ER) | payer OTHER, SELFPAY ==
--- NOTE | ~2024-01-14 | XR_ITS ---
EXAMINATION: XR chest 1V portable DATE: 01/14/2024 20:17 INDICATION: Cough. TECHNIQUE: A single frontal view of the chest was obtained. COMPARISON: None. FINDINGS: A calcified left lung nodule and calcified left hilar lymph nodes are consistent with old g ranulomatous disease. No pleural effusion or pneumothorax. The heart size is normal. IMPRESSION: 1. No acute cardiopulmonary disease. Reviewed, dictated and finalized at location A.
[2024-01-14 19:51] VITALS: BP 147/92; PULSE 74; RESP 16; TEMP 36.8; O2SAT 100
[2024-01-14 19:58] VITALS: O2SAT 98
--- NOTE | 2024-01-14 20:04 | ED.URI ---
HPI - URI/Sore Throat General Chief Complaint: Upper Respiratory Infection Stated Complaint: sore throat, runny nose, flushed, body aches Time Seen by Provider: 01/14/24 20:03 Source: patient Mode of arrival: ambulatory Limitations: no limitations History of Present Illness HPI Narrative: 28 YEARS OLD WHITE FEMALE DROVE HERSELF TO THE EMERGENCY ROOM COMPLAINING OF RUNNY NOSE, POSTNASAL DISCHARGE, SORE THROAT, HEADACHE, BODY ACHES, HOARSENESS OF VOICE STARTED 2 DAYS AGO. 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 Related Data Home Medications Medication Instructions Recorded Confirmed atomoxetine 100 mg capsule 100 mg PO DAILY 07/30/23 11/09/23 (Strattera) buspirone 15 mg tablet 15 mg PO BID 07/30/23 11/09/23 Allergies Allergy/AdvReac Type Severity Reaction Status Date / Time No Known Allergies Allergy Verified 01/14/24 19:51 Review of Systems Review of Systems: All systems reviewed & are unremarkable except as noted in HPI and below PMFSH Past Medical History Medical History Healthy female adult Social History Social History Gender identity (if verbalized by the patient): Female Exam Narrative: GENERAL APPEARANCE: WELL-DEVELOPED, WELL-NOURISHED SKIN: NORMAL COLOR HEAD: NORMOCEPHALIC, NONTRAUMATIC EYES: CLEAR CONJUNCTIVA ENT: OROPHARYNX NORMAL, EARS NORMAL, NOSE NORMAL NECK: SUPPLE, NONTENDER CHEST AND RESPIRATORY: AIRWAY PATENT, NO RESPIRATORY DISTRESS, NO ACCESSORY MUSCLE USE HEART: REGULAR RATE/RHYTHM ABDOMEN: SOFT, NONTENDER, NO ORGANOMEGALY, QUIET BOWEL SOUNDS VASCULAR: NORMAL PERIPHERAL PULSES, NORMAL CAPILLARY REFILL. MUSCULOSKELETAL: NORMAL RANGE OF MOTION, NONTENDER BACK NEUROLOGIC: ALERT AND ORIENTED ?3, EMAIL MARKETING MANAGER IS NORMAL TESTED, NO GROSS MOTOR DEFICIT Course Vital Signs Vital signs: Vital Signs Temperature 36.8 C 01/14/24 19:51 Pulse Rate 74 01/14/24 19:51 Respiratory Rate 16 01/14/24 19:51 Blood Pressure 147/92 H 01/14/24 19:51 Pulse Oximetry 100 01/14/24 19:51 Oxygen Delivery Room Air 01/14/24 19:51 Temperature 36.8 C 01/14/24 19:51 Pulse Rate 74 01/14/24 19:51 Respiratory Rate 16 01/14/24 19:51 Blood Pressure 147/92 H 01/14/24 19:51 Pulse Oximetry 98 01/14/24 19:58 Oxygen Delivery Room Air 01/14/24 19:58 MDM - URI/Sore Throat MDM Narrative Medical decision making narrative: UPPER RESPIRATORY VIRAL INFECTION, IN THE ED PATIENT TESTED NEGATIVE FOR COVID, FLU AND RSV, , CALL SYMPTOM IS MY CONCERN. Differential Diagnosis Differential diagnosis: Likely upper respiratory infection and other Medical Records Attestation: I reviewed the patient's medical records. Lab Data Attestation: I reviewed the patient's lab results. Labs: Lab Results 01/14/24 Range/Units 19:56 Influenza A (RT-PCR) Negative (Negative) Influenza B (RT-PCR) Negative (Negative) RSV (RT-PCR) Negative (Negative) SARS-CoV-2 RNA (RT-PCR) Negative (Negative) Critical Care Time Critical Care Time Critical Care Time: No Discharge Plan Discharge Clinical Impression: Upper respiratory infection, viral Patient Disposition: Home, Self-Care Condition: Stable Instructions: Cold Symptoms (ED) Additional Instructions: RETURN IF SYMPTOMS ARE WORSENING , CALL YOUR FAMILY PHYSICIAN FOR APPOINTMENT, TAKE TYLENOL, IBUPROFEN NEEDED FOR ACHES AND PAIN, CONTINUE HOME MEDICATIONS. Prescriptions: No Action buspirone 15 mg tablet 15 mg PO BID atomoxetine [Strattera] 100 mg capsule 100 mg PO DAILY Follow-up/Referrals: May,MARCIA Rao [P
[2024-01-14 20:38] LABS: Influenza A QL RT-PCR Negative (Negative); Influenza B QL RT-PCR Negative (Negative); RSV RNA, RT-PCR Negative (Negative); SARS-CoV-2 RNA PCR Negative (Negative)
[2024-01-14 21:22] VITALS: BP 142/87; PULSE 79; RESP 16; O2SAT 97
== END 2024-01-14 21:26 | disposition home or self-care (01) ==
PROVIDERS: Registered Nurse; Emergency Provider Emergency Medicine; PCP Physician Assistant
DX: J06.9 Acute upper respiratory infection, unspecified (principal)
CPT/HCPCS: 71045; 87637; 99283

== ENCOUNTER 2024-02-05 13:34 | Emergency (ER) | payer OTHER, SELFPAY ==
--- NOTE | ~2024-02-05 | XR_ITS ---
EXAMINATION: XR chest 2V DATE: 02/05/2024 13:59 INDICATION: Left chest pain. TECHNIQUE: Frontal and lateral views of the chest were obtained. COMPARISON: Chest single view 01/14/2024 FINDINGS: There is no pneumonia, pleural effusion, or pneumothorax. The heart size is normal. IMPRESSION: 1. No acute cardiopulmonary disease. Reviewed, dictated and finalized at location A. [facility]
--- NOTE | 2024-02-05 13:35 | ECG_ITS ---
Test Date: 2024-02-05 13:42:09 Measurements Intervals Dennard Rate: 91 P: 64 MA: 147 QRS: 26 QRSD: 93 T: 38 QT: 348 QTc: 430 Interpretive Statements SINUS RHYTHM POSSIBLE LEFT ATRIAL ENLARGEMENT BORDERLINE ECG No previous ECG available for comparison Electronically Signed On 02-05-2024 13:53:16 WEIGHT CONTROL LECTURER by Hugh Li D.O.
--- NOTE | 2024-02-05 13:41 | ED_ITS ---
HPI - Chest Pain General Chief Complaint: Chest Pain <Key Toscano PA-C - Last Filed: 02/05/24 13:45> Stated Complaint: chest pain since this AM <CARISSA Wong Last Filed: 02/05/24 13:45> Time Seen by Provider: 02/05/24 13:41 <CARISSA Wong Last Filed: 02/05/24 13:45> Focused HPI: Patient is a 28 y/o female, with pmh of anxiety and ADHD, who presents to the ED with c/o CP. Patient reports she woke up this morning with CP, pain present throughout her L sided chest. She states pain is worse with movement, bending over, taking deep breaths. She does feel mildly short of breath. Tried taking ibuprofen w/o improvement. Denies cough, cold sx's, fevers, abd pain, BLE pain or swelling. Denies recent long distance travel, hx of blood clots or other cardiac issues. GENERAL: Well-appearing, well-nourished, and in no acute distress. HEAD: Normocephalic, atraumatic. CHEST: Clear to auscultation. ?No respiratory distress. HEART: Regular rate and rhythm.? NEURO: ?Alert and oriented x3. Patient screened in triage and initial orders placed.? ?Additional care and disposition to be based upon?diagnostic testing and treatment. <Key Toscano PA-C - Last Filed: 02/05/24 13:45> Source: patient <Key Toscano PA-C - Last Filed: 02/05/24 13:45> Mode of arrival: ambulatory <CARISSA Wong Last Filed: 02/05/24 13:45> Limitations: no limitations <CARISSA Wong Last Filed: 02/05/24 13:45> History of Present Illness HPI narrative: Agree with HPI <Jeane Aaron MD - Last Filed: 02/05/24 19:13> Related Data Home Medications: Home Medications Medication Instructions Recorded Confirmed atomoxetine 100 mg capsule 100 mg PO DAILY 07/30/23 11/09/23 (Strattera) buspirone 15 mg tablet 15 mg PO BID 07/30/23 11/09/23 <Key Toscano PA-C - Last Filed: 02/05/24 13:45> Allergies/Adverse Reactions: Allergies Allergy/AdvReac Type Severity Reaction Status Date / Time No Known Allergies Allergy Verified 01/14/24 19:51 <Key Toscano PA-C - Last Filed: 02/05/24 13:45> Review of Systems Review of Systems: All systems reviewed & are unremarkable except as noted in HPI and below <Jeane Aaron MD - Last Filed: 02/05/24 19:13> PMFSH Past Medical History Medical History: Medical History Healthy female adult <Key Toscano PA-C - Last Filed: 02/05/24 13:45> Social History Social History: Social History Gender identity (if verbalized by the patient): Female <Key Toscano PA-C - Last Filed: 02/05/24 13:45> Exam Narrative: EXAMINATION OF ORGAN SYSTEMS/BODY AREAS: Constitutional: Vital signs per nursing GENERAL: Appears slightly stressed HEAD: Normal with no signs of head trauma. EYES: EOMI, conjunctiva normal ENT: Hearing grossly intact LUNGS: Nonlabored breathing. HEART: [Regular rate and rhythm] ABD: [Soft], [nontender to palpation] EXT: Normal range of motion SKIN: [No rashes or lesions.] NEURO: [Alert and oriented x 3. No gross focal sensory or strength deficits.] PSYCH: Normal affect <Jeane Aaron MD - Last Filed: 02/05/24 19:13> Course Vital Signs Vital signs: Vital Signs Oxygen Delivery Room Air 02/05/24 13:35 Temperature 97.4 F L 02/05/24 13:47 Pulse Rate 68 02/05/24 16:08 Respiratory Rate 21 H 02/05/24 16:08 Blood Pressure 142/84 H 02/05/24 16:08 Pulse Oximetry 100 02/05/24 16:08 Oxygen Delivery Room Air 02/05/24 13:47 <Key Toscano PA-C - Last Filed: 02/05/24 13:45> Vital Signs Oxygen Delivery Room Air 02/05/24 13:35 Temperature 97.4 F L 02/05/24 13:47 Pulse Rate 68 02/05/24 16:08 Respiratory Rate 21 H 02/05/24 16:08 Blood Pressure 142/84 H 02/05/24 16:08 Pulse Oximetry 100 02/05/24 16:08 Oxygen Delivery Room Air 02/05/24 13:47 <Jeane Aaron MD - Last Filed: 02/05/24 19:13> MDM - Chest Pain MDM Narrative Medical decision making narrative: MSE by MARCIO in triage. <Key Toscano PA-C - Last Filed: 02/05/24 13:45> MSE by MARCIO in triage. // Patient with history of anxiety/panic attacks presenting here with symptoms consistent with possible panic attack. 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 Chest x-ray on my independent interpretation does not show any acute abnormality, no pneumothorax or consolidation. EKG - 12-Lead: Performed at 1342. Interpreted by me. [Sinus rhythm]. Rate 91. [Normal] axis. [place]-interval [normal]. QRS duration [normal]. QTc [normal]. [No ST segment elevation or depression]. [T-wave normal]. Impression: No EKG evidence of acute ischemia or dysrhythmia. All labs including troponin and D-dimer within acceptable limits. I do feel patient is stable for discharge home at this time with followup to their doctor, and return here if symptoms return or worsen. Agreeable to outpatient management. <Jeane Aaron MD - Last Filed: 02/05/24 19:13> Lab Data Result diagrams: 02/05/24 15:36 02/05/24 15:36 <Key Toscano PA-C - Last Filed: 02/05/24 13:45> Labs: Lab Results 02/05/24 Range/Units 15:36 WBC 6.5 (4.5-10.0) K/mm3 RBC 4.16 L (4.2-5.4) M/mm3 Hgb 12.7 (12.0-15.0) g/dL Hct 36.0 L (37.0-47.0) % MCV 86.5 (80-100) fl MCH 30.5 (26-34) pg MCHC 35.3 (32-36) g/dl RDW 12.3 (11.5-14.5) % Plt Count 227 (150-375) k/mm3 MPV 10.6 H (7.4-10.4) fl Immature Gran % (Auto) 0.3 (0-0.5) % Neut % (Auto) 62.0 (45.5-73.1) % Lymph % (Auto) 28.0 (18.3-44.2) % [place] % (Auto) 7.8 (2.6-8.5) % Eos % (Auto) 1.7 (0-4.4) % Baso % (Auto) 0.2 (0.2-1.2) % Lymph # (Auto) 1.82 (0.9-3.2) K/mm3 [place] # (Auto) 0.5 (0.1-0.6) K/mm3 Eos # (Auto) 0.1 (0-0.3) K/mm3 Baso # (Auto) 0.0 (0.0-0.1) K/mm3 Abs Immat Gran (auto) 0.02 (0.00-0.031) K/mm3 Absolute Neuts (auto) 4.0 (1.3-6.7) K/mm3 Absolute Nucleated RBC 0.000 (0.0-0.012) K/mm3 Nucleated RBC % 0.0 (0.0-0.2) % PT 13.9 (11.1-14.7) Seconds INR 1.0 APTT 25.9 (22.3-36.8) Seconds D-Dimer < 0.27 (<0.48) ug/mL Sodium 140 (137-145) mmol/L Potassium 3.9 (3.4-5.0) mmol/L Chloride 105 (98-107) mmol/L Carbon Dioxide 23 (22-30) mmol/L Anion Gap 12 (4-12) mmol/L BUN 17 D (7-17) mg/dL Creatinine 0.70 (0.7-1.0) mg/dL Estim Creat Clear Calc 124 ml/min Estimated GFR > 60 (59 - ) Glucose 95 (65-110) mg/dL Calcium 9.3 (8.4-10.2) mg/dL Total Bilirubin 0.6 (0.2-1.3) mg/dL AST 27 (14-36) U/L ALT 23 (6-35) U/L Alkaline Phosphatase 81 (38-126) U/L Troponin I < 0.012 (0.000-0.034) ng/mL Total Protein 8.0 (6.3-8.2) g/dL Albumin 4.7 (3.5-5.1) g/dL Lipase 111 (23-300) U/L <Key Toscano PA-C - Last Filed: 02/05/24 13:45> Lab Results 02/05/24 Range/Units 15:36 WBC 6.5 (4.5-10.0) K/mm3 RBC 4.16 L (4.2-5.4) M/mm3 Hgb 12.7 (12.0-15.0) g/dL Hct 36.0 L (37.0-47.0) % MCV 86.5 (80-100) fl MCH 30.5 (26-34) pg MCHC 35.3 (32-36) g/dl RDW 12.3 (11.5-14.5) % Plt Count 227 (150-375) k/mm3 MPV 10.6 H (7.4-10.4) fl Immature Gran % (Auto) 0.3 (0-0.5) % Neut % (Auto) 62.0 (45.5-73.1) % Lymph % (Auto) 28.0 (18.3-44.2) % [place] % (Auto) 7.8 (2.6-8.5) % Eos % (Auto) 1.7 (0-4.4) % Baso % (Auto) 0.2 (0.2-1.2) % Lymph # (Auto) 1.82 (0.9-3.2) K/mm3 [place] # (Auto) 0.5 (0.1-0.6) K/mm3 Eos # (Auto) 0.1 (0-0.3) K/mm3 Baso # (Auto) 0.0 (0.0-0.1) K/mm3 Abs Immat Gran (auto) 0.02 (0.00-0.031) K/mm3 Absolute Neuts (auto) 4.0 (1.3-6.7) K/mm3 Absolute Nucleated RBC 0.000 (0.0-0.012) K/mm3 Nucleated RBC % 0.0 (0.0-0.2) % PT 13.9 (11.1-14.7) Seconds INR 1.0 APTT 25.9 (22.3-36.8) Seconds D-Dimer < 0.27 (<0.48) ug/mL Sodium 140 (137-145) mmol/L Potassium 3.9 (3.4-5.0) mmol/L Chloride 105 (98-107) mmol/L Carbon Dioxide 23 (22-30) mmol/L Anion Gap 12 (4-12) mmol/L BUN 17 D (7-17) mg/dL Creatinine 0.70 (0.7-1.0) mg/dL Estim Creat Clear Calc 124 ml/min Estimated GFR > 60 (59 - ) Glucose 95 (65-110) mg/dL Calcium 9.3 (8.4-10.2) mg/dL Total Bilirubin 0.6 (0.2-1.3) mg/dL AST 27 (14-36) U/L ALT 23 (6-35) U/L Alkaline Phosphatase 81 (38-126) U/L Troponin I < 0.012 (0.000-0.034) ng/mL Total Protein 8.0 (6.3-8.2) g/dL Albumin 4.7 (3.5-5.1) g/dL Lipase 111 (23-300) U/L <Jeane Aaron MD - Last Filed: 02/05/24 19:13> Discharge Plan Discharge Clinical Impression: Atypical chest pain <Key Toscano PA-C - Last Filed: 02/05/24 13:45> Patient Disposition: Home, Self-Care <Key Toscano PA-C - Last Filed: 02/05/24 13:45> Condition: Stable <Key Toscano PA-C - Last Filed: 02/05/24 13:45> Instructions: Chest Pain (ED) <Key Toscano PA-C - Last Filed: 02/05/24 13:45> Additional Instructions: Please follow up with your doctor; you can always return for any further issues. <Key Toscano PA-C - Last Filed: 02/05/24 13:45> Prescriptions: No Action buspirone 15 mg tablet 15 mg PO BID atomoxetine [Strattera] 100 mg capsule 100 mg PO DAILY <Key Toscano PA-C - Last Filed: 02/05/24 13:45> Follow-up/Referrals: May,MARCIA Rao [Primary Care Provider] - 2 Days <Key Toscano PA-C - Last Filed: 02/05/24 13:45>
[2024-02-05 13:47] VITALS: BP 135/70; PULSE 91; RESP 18; TEMP 36.3; O2SAT 100
[2024-02-05 15:10] VITALS: PULSE 85; RESP 14; O2SAT 98
[2024-02-05 15:15] VITALS: PULSE 83; RESP 19; O2SAT 99
[2024-02-05] MEDS: ASPIRIN 81 MG CHEWABLE TABLET 324 MG PO (15:31)
[2024-02-05] MEDS: ACETAMINOPHEN 500 MG TABLET 1000 MG PO (15:31)
[2024-02-05 15:44] LABS: Basophils Percent Auto 0.2 % (0.2-1.2); Eosinophils Absolute Auto 0.1 K/mm3 (0-0.3); Eosinophils Percent Auto 1.7 % (0-4.4); Hemoglobin 12.7 g/dL (12.0-15.0); Immature Granulocyte Absolute 0.02 K/mm3 (0.00-0.031); Immature Granulocyte Percent A 0.3 % (0-0.5); Lymphocytes Absolute Auto 1.82 K/mm3 (0.9-3.2); Mean Corpuscular HGB Conc 35.3 g/dl (32-36); Mean Corpuscular Hemoglobin 30.5 pg (26-34); Mean Corpuscular Volume 86.5 fl (80-100); Mean Platelet Volume 10.6 fl (7.4-10.4); Monocytes Absolute Auto 0.5 K/mm3 (0.1-0.6); Monocytes Percent Auto 7.8 % (2.6-8.5); Platelet Count Result 227 k/mm3 (150-375); Red Blood Count 4.16 M/mm3 (4.2-5.4); Red Cell Distribution Width 12.3 % (11.5-14.5); White Blood Count 6.5 K/mm3 (4.5-10.0)
[2024-02-05 15:53] VITALS: PULSE 80; RESP 28; O2SAT 100
[2024-02-05 15:53] LABS: Alanine Aminotransferase 23 U/L (6-35); Albumin Level 4.7 g/dL (3.5-5.1); Alkaline Phosphatase 81 U/L (38-126); Anion Gap 12 mmol/L (4-12); Aspartate Amino Transferase 27 U/L (14-36); Bilirubin,Total 0.6 mg/dL (0.2-1.3); Blood Urea Nitrogen 17 mg/dL (7-17); Calcium 9.3 mg/dL (8.4-10.2); Carbon Dioxide 23 mmol/L (22-30); Chloride 105 mmol/L (98-107); Estimated CRCL calculation 124 ml/min; Estimated Glomerular Filt Rate > 60; Glucose 95 mg/dL (65-110); Lipase 111 U/L (23-300); Potassium 3.9 mmol/L (3.4-5.0); Sodium 140 mmol/L (137-145)
[2024-02-05 15:56] LABS: Prothrombin Time 13.9 Seconds (11.1-14.7)
[2024-02-05 15:57] LABS: Partial Thromboplastin Time 25.9 Seconds (22.3-36.8)
[2024-02-05 15:59] LABS: D Dimer < 0.27 ug/mL (<0.48)
[2024-02-05 16:02] LABS: Troponin I < 0.012 ng/mL (0.000-0.034)
[2024-02-05 16:08] VITALS: BP 142/84; PULSE 68; RESP 21; O2SAT 100
== END 2024-02-05 16:24 | disposition home or self-care (01) ==
PROVIDERS: Physician Assistant; Emergency Provider Emergency Medicine; PCP Physician Assistant
DX: R07.89 Other chest pain (principal); F41.9 Anxiety disorder, unspecified; F90.9 Attention-deficit hyperactivity disorder, unspecified type; R94.31 Abnormal electrocardiogram [ECG] [EKG]
CPT/HCPCS: 36415; 71046; 80053; 83690; 84484; 85025; 85380; 85610; 85730; 93005; 99284; A9270

== ENCOUNTER 2024-06-27 08:12 | Emergency (ER) | payer OTHER, SELFPAY ==
--- NOTE | 2024-06-27 08:16 | ED_ITS ---
HPI - General Adult General Chief complaint: Upper Respiratory Infection Stated complaint: cough Time Seen by Provider: 06/27/24 08:15 Source: patient Mode of arrival: ambulatory Limitations: no limitations History of Present Illness HPI narrative: 29-year-old female patient presents to [facility] with complaints of a cough and runny nose for the past 2 days. Denies fevers body aches or chills. Patient denies any nausea, vomiting or diarrhea. Denies any ear pain or sore throat. Patient states she has been trying to take some [id number] allergy medicine, Mucinex which has not helped. 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 Related Data Home Medications ?Medication ?Instructions ?Recorded ?Confirmed ?Last Taken ?Type atomoxetine 100 mg capsule 100 mg PO DAILY 07/30/23 11/09/23 Unknown History (Strattera) buspirone 15 mg tablet 15 mg PO BID 07/30/23 11/09/23 Unknown History Allergies Allergy/AdvReac Type Severity Reaction Status Date / Time No Known Allergies Allergy Verified 06/27/24 08:23 Review of Systems 2 Review of Systems: CONSTITUTIONAL: Denies fever, chills, or sweats. EYES: Denies visual changes, redness, or discharge. ENT: Positive rhinorrhea, congestion, denies sore throat, or otalgia. CARDIOVASCULAR: Denies chest pain, palpitations, or edema. RESPIRATORY: positive cough denies dyspnea. GASTROINTESTINAL: Denies abdominal pain, nausea, vomiting, or diarrhea. GENITOURINARY: Denies dysuria or hematuria. SKIN: Denies rash or itching. MUSCULOSKELETAL: Denies back pain, joint pain, or myalgia. NEUROLOGIC: Denies headache, numbness, or weakness. PSYCHIATRIC: Denies anxiety or depression. PMFSH Past Medical History Medical History Healthy female adult Social History Social History Gender identity (if verbalized by the patient): Female Comments At the time of my signature I agree with nursing past medical history, surgical, social, and family history. There is no relevant family history pertinent to the presenting complaint. Exam Narrative: GENERAL: Well-appearing, well-nourished, and in no acute distress. HEAD: Normocephalic, atraumatic. EYES: PERRLA and EOMI. ENT: Nares with erythema edema noted bilaterally, no rhinorrhea or epistaxis. Mucous membranes moist. posterior pharynx with no erythema, tonsillar enlargement, exudates or lesions present. Bilateral TMs are clear no erythema or foreign bodies the canal. NECK: Supple. No lymphadenopathy CHEST: Clear to auscultation. No respiratory distress. HEART: Regular rate and rhythm. No murmur heard. Normal peripheral pulses. ABDOMEN: Soft, nontender, nondistended, normal active bowel sounds. EXTREMITIES: Normal range of motion. No edema. SKIN: Warm, dry, no rash. NEURO: No focal deficits. Alert and oriented x3. Course Course Level of Care: Express Care Visit Vital Signs Vital signs: Vital Signs Temperature 36.5 C 06/27/24 08:23 Pulse Rate 83 06/27/24 08:23 Respiratory Rate 18 06/27/24 08:23 Blood Pressure 141/71 H 06/27/24 08:23 Pulse Oximetry 99 06/27/24 08:23 Oxygen Delivery Room Air 06/27/24 08:23 Temperature 36.5 C 06/27/24 08:23 Pulse Rate 83 06/27/24 08:23 Respiratory Rate 18 06/27/24 08:23 Blood Pressure 141/71 H 06/27/24 08:23 Pulse Oximetry 99 06/27/24 08:23 Oxygen Delivery Room Air 06/27/24 08:23 Vital signs reviewed. The patient has been informed that they may have pre-hypertension or Hypertension based on a BP reading in the department. I recommend that the patient call the primary care provider listed on their discharge instructions or a physician of their choice this week to arrange follow up for further evaluation of possible pre-hypertension or Hypertension Medical Decision Making MDM Narrative Medical decision making narrative: Discussed with patient that the point of care influenza test today is negative. Discussed with her this is most likely a virus or coughing caused by her sinus drainage. Encouraged her to continue taking eyqx-uux-txeceve antihistamines to help with the drainage and would encourage a sinus rinse, hot tea or honey to help soothe the cough as well. I will prescribe some Tessalon Perles today to help with the coughing. Discussed with her that this could last anywhere from 5 days to 2 weeks. If she continues to have the cough past 2 weeks that she can come back for reassessment. Patient verbalized understanding denies any other questions or concerns at this time. Differential Diagnosis Differential Diagnosis: Differential diagnosis: Allergic rhinitis, chronic sinusitis, tonsillitis, acute sinusitis, infectious mononucleosis, seasonal influenza, pertussis, diphtheria, meningococcal disease, viral syndrome, viral bronchitis, RSV, COVID- 19 Vital Signs Vital Signs: Vital Signs Temperature 36.5 C 06/27/24 08:23 Pulse Rate 83 06/27/24 08:23 Respiratory Rate 18 06/27/24 08:23 Blood Pressure 141/71 H 06/27/24 08:23 Pulse Oximetry 99 06/27/24 08:23 Oxygen Delivery Room Air 06/27/24 08:23 Temperature 36.5 C 06/27/24 08:23 Pulse Rate 83 06/27/24 08:23 Respiratory Rate 18 06/27/24 08:23 Blood Pressure 141/71 H 06/27/24 08:23 Pulse Oximetry 99 06/27/24 08:23 Oxygen Delivery Room Air 06/27/24 08:23 Critical Care Time Critical Care Time Critical Care Time: No Discharge Plan Discharge Clinical Impression: Viral URI with cough Patient Disposition: Home, Self-Care Condition: Stable Instructions: Antibiotic Form, Acute Cough (ED) Additional Instructions: Viral illness may last between 7-12days; antibiotic is NOT recommended at this time. Recommend antihistamine such as Benadryl at night time and Claritin/Zyrtec/Nella during the day Cough syrup may cause drowsiness; avoid driving or take it at night time. Also, recommend symptomatic treatment includes: rest, fluids, and increase humidity of the air at home. Recommend Acetaminophen or nonsteroidal anti-inflammatory agents (NSAIDs) as directed in the bottle to reduce fever and/pain/headache. Avoid smoking/second-hand smoke. Limit visits to areas with large crowds. Please schedule a follow-up visit with your personal physician for further evaluation and treatment within 3-5days. Including recheck and discussion of your blood pressure. If your symptoms persist, change or worsen significantly before you can contact your personal physician then please, without delay, go to the emergency department for further evaluation. Patient Language: [place] Prescriptions: New benzonatate 200 mg capsule 200 mg PO TID PRN (Reason: cough) 10 Days Qty: 30 0RF No Action buspirone 15 mg tablet 15 mg PO BID atomoxetine [Strattera] 100 mg capsule 100 mg PO DAILY Follow-up/Referrals: May,MARCIA Rao [Primary Care Provider] - Time of Disposition: 08:47
--- OUTSIDE RECORDS SUMMARY | 2024-06-27 08:16 | XMS_ITS | Continuity of Care Document ---
Author Organization [facility] Address [address] [place] [address] [address] [place] [address] Phone Care Team Providers Care Math And Science Division Chair Name Role Phone Laurie Wood DPT Unavailable Unavailable Procedures Procedure Date Therapeutic Exercise Neuromuscular Re-Ed Manual Therapy Hot or Cold Pack Progress Note Therapeutic Exercise Manual Therapy Hot or Cold Pack Therapeutic Exercise Manual Therapy Hot or Cold Pack Therapeutic Exercise Manual Therapy Hot or Cold Pack Therapeutic Exercise Manual Therapy Hot or Cold Pack Therapeutic Exercise Manual Therapy Hot or Cold Pack Therapeutic Exercise Manual Therapy Hot or Cold Pack PT Re-evaluation Therapeutic Exercise Manual Therapy Hot or Cold Pack Therapeutic Exercise Manual Therapy Hot or Cold Pack Therapeutic Exercise Manual Therapy Hot or Cold Pack Electrical Stimulation Therapeutic Exercise Manual Therapy Hot or Cold Pack Electrical Stimulation PT Evaluation Moderate Complexity Therapeutic Exercise Manual Therapy Hot or Cold Pack Advance Directives Directive Yes / No Effective Date File Name No Information Encounters Encounter Description Practice Location Reason(s) For Visit Diagnoses Date Provider Providers Copied on Encounter [facility] [address], [id number], tel:[phone] Sterling No Information 4201 8 Nina Laurie. [address] [place] [address], [facility] [address], [place], [facility], [place]. tel:[phone] Referring Provider: Pierce Harris, [address]43 [facility], [place], [place], [facility]. tel:[phone] [place] [address], [id number], [place] tel:[phone] [place] Pain in right shoulderStiff ness of right shoulder, not elsewhere classifiedOth symptoms and signs involving the musculoskelet al systemUnspeci fied sprain of right shoulder joint, subs encntr 8-201 8 [place] Laurie. [address] [facility], [address], [place], [place], [facility], [place]. tel:[phone] Referring Provider: Pierce Harris, [address]43 [facility] [address], [place], [address]. tel:[phone] [place], [place] [address] [facility] [address], [place], [id number], [place] tel:[phone] Sterling Pain in right shoulderStiff ness of right shoulder, not elsewhere classifiedOth symptoms and signs involving the musculoskelet al systemUnspeci fied sprain of right shoulder joint, subs encntr 5-201 8 [place] Laurie. [address] [facility], [address], [place], [facility], [place]. tel:[phone] Referring Provider: Pierce Harris, [address]43 [facility] [address], [place], [address]. tel:[phone] [facility]2121 [facility] [address], [place], [id number], [place] tel:[phone] Sterling Pain in right shoulderStiff ness of right shoulder, not elsewhere classifiedOth symptoms and signs involving the musculoskelet al systemUnspeci fied sprain of right shoulder joint, subs encntr Sep-2 3-201 8 Nina Laurie. [address] [place] [address], [address], [place], [facility], [place]. tel:[phone] Referring Provider: Pierce Harris, [address]43 [facility] [address], [place], [address]. tel:[phone] [facility] [address] [facility], [place], [place], [id number], [place] tel:[phone] [place] Pain in right shoulderStiff ness of right shoulder, not elsewhere classifiedOth symptoms and signs involving the musculoskelet al systemUnspeci fied sprain of right shoulder joint, subs encntr 0-201 8 Nina Laurie. [address] [place] [address], [address], [place], [facility], [place]. tel:[phone] Referring Provider: Pierce Harris, [address]43 [facility] [address], [place], [address]. tel:[phone] [facility] [address] [address], [place], [place], [id number], [place] tel:[phone] [place] Pain in right shoulderStiff ness of right shoulder, not elsewhere classifiedOth symptoms and signs involving the musculoskelet al systemUnspeci fied sprain of right shoulder joint, subs encntr Sep- 8-201 8 [place] Denise. . Referring Provider: Pierce Harris, [address]43 [facility] [address], [place], [address]. tel:[phone] [facility] [facility], [place], [place], [id number], [place] tel:[phone] [place] Pain in right shoulderStiff ness of right shoulder, not elsewhere classifiedOth symptoms and signs involving the musculoskelet al systemUnspeci fied sprain of right shoulder joint, subs encntr Sep- 7-201 8 [place] Denise. . Referring Provider: Pierce Harris, [address]43 [facility], [place], [address]. tel:[phone] [place] [address] [address] [facility], [place], [place], [id number], [place] tel:[phone] [place] Pain in right shoulderStiff ness of right shoulder, not elsewhere classifiedOth symptoms and signs involving the musculoskelet al systemUnspeci fied sprain of right shoulder joint, subs encntr Aug-2 2-201 8 Nina Laurie. [address] [place] [address], [address], [place], [place], [facility], [place]. tel:[phone] Referring Provider: Pierce Harris, 2043 [facility] [address], [place], [place], [facility]. tel:[phone] [place] [address] [address] [facility] [address], [place], [id number], [place] tel:[phone] Sterling Pain in right shoulderStiff ness of right shoulder, not elsewhere classifiedOth symptoms and signs involving the musculoskelet al systemUnspeci fied sprain of right shoulder joint, subs encntr Aug-1 9-201 8 [place] Laurie. [address] [place] [address], [address], [place], [place], [facility], [place]. tel:[phone] Referring Provider: Pierce Harris, 2043 [facility] [address], [place], [facility]. tel:[phone] [place] [address] [place], [place] [address], [place], [place], [id number], [place] tel:[phone] Sterling Pain in right shoulderStiff ness of right shoulder, not elsewhere classifiedOth symptoms and signs involving the musculoskelet al systemUnspeci fied sprain of right shoulder joint, subs encntr Aug-1 4-201 8 [place] Laurie. [address] [place] [address], [address], [place], [place], [facility], [place]. tel:[phone] Referring Provider: Pierce Harris, [address]43 [facility], [place], [address]. tel:[phone] [place] [address], [id number], [place] tel:[phone] [place] Pain in right shoulderStiff ness of right shoulder, not elsewhere classifiedOth symptoms and signs involving the musculoskelet al systemUnspeci fied sprain of right shoulder joint, subs encntr Brien-1 2-201 8 Nina Laurie. [address] [place] [address], [address], [place], [place], [facility], [place]. tel:[phone] Referring Provider: Pierce Harris, [address] [place] [address], [place], [facility]. tel:[phone] [place] [address], [id number], [place] tel:[phone] [place] Pain in right shoulderStiff ness of right shoulder, not elsewhere classifiedOth symptoms and signs involving the musculoskelet al systemUnspeci fied sprain of right shoulder joint, subs encntr Brien-1 1-201 8 [place] Laurie. [address] [place] [address], [address], [place], [place], [facility], [place]. tel:[phone] Referring Provider: Pierce Harris, [address], [address]. tel:[phone] [place] [address] [address] [facility] [address], [place], [id number], [place] tel:[phone] Sterling Pain in right shoulderStiff ness of right shoulder, not elsewhere classifiedOth symptoms and signs involving the musculoskelet al systemUnspeci fied sprain of right shoulder joint, subs encntr Brien-0 7-201 8 Nina Laurie. [address] [place] [address], [address], [place], [place], [facility], [place]. tel:[phone] Referring Provider: Pierce Harris, [address]43 [facility] [address], [place], [address]. tel:[phone] Family History Family Member Type Diagnosis Age At Onset No Information Payers Payer name Insurance type Covered green party ID Authoriza tipeace(s) [employer] EPO WC SP [id number] Social History Type Description Quantity Date Captured Comments Sex Female Smoking Status No Information Chief Complaint And Reason For Visit No Information Reason For Referral Reason For Referral No Information History Of Present Illness Encounter Date Complaint History Of Prese nt Illness No Information Functional Status Date Functional Assessmen t No Information Instructions Date Instruction Additional Infor mation No Information Assessments Type Assessment Date No Information Patient Care Teams Name Effective Dates (start - stop) Status Members No Information
--- OUTSIDE RECORDS SUMMARY | 2024-06-27 08:16 | XMS_ITS | Clinical Summary ---
Author Organization [facility] Address [address] [place] [address] Care Team Providers Care Litigation Assistant Name Role Phone Merritt Hicks Primary Care Provider [phone] Source Comments [facility],non-owned Affiliates and Associated Physician Practices is amultiple site organization consisting of ambulatory clinics and hospital sitesin [place], [place], [place] and [place]. This disclosure is being madepursuant to the Care Everywhere program and may not contain all information available regarding this patient. Last updated 17.[facility] Allergies No known active allergies Medications * Be aware that medications may not be up to date on this document. Alwaysverify current medications with the patient. Medication Sig Dispensed Refills Start Date End Date Status acetaminophen (TYLENOL) 500 MG tabletIndications :Pain Take 1 tablet by mouth every 4 hours as needed for Fever or Pain Maximum allowable Acetaminophen amount = 4 Grams (4000 mg) / 24 hours. Reasons: Pain 60 tablet 05/26/2019 Active Additional Information Patient taking differently: 500-1,000 mgOralEVERY 6 HOURS PRN, Fever, Pain, Maximum allowable Acetaminophen amount = 4 Grams (4000 mg) / 24 hours., Indications: Pain, Reported on 05/24/2021 docusate sodium (COLACE) 100 MG capsule Take 1 (one) capsule by mouth 2 times daily 60 capsule 06/18/2020 Active Additional Information Patient not taking.Reported on 05/10/2021 ferrous sulfate 325 (65 FE) MG tablet Take 1 (one) tablet by mouth once daily 100 tablet 06/18/2020 Active Additional Information Patient not taking.Reported on 05/10/2021 famotidine (PEPCID) 40 MG tablet Take 40 mg by mouth once daily 05/20/2020 Active HYDROcodone-aceta minophen (NORCO) 5-325 MG tablet Take 1 (one) tablet by mouth every 6 hours as needed for Pain 28 tablet 05/10/2021 Active gabapentin (NEURONTIN) 300 MG capsule Take 1 (one) capsule by mouth 3 times daily 21 capsule 05/10/2021 Active Dextromethorphan- guaiFENesin 60-1200 MG Take 1 tablet by mouth every 12 hours as needed Active ondansetron, disintegrating, (ZOFRAN ODT) 8 MG tablet Take 8 mg by mouth 2 times daily as needed 04/01/2021 Active pseudoephedrine CR 12hr (SUDAFED SINUS CONGESTION 12HR) 120 MG tablet Take 120 mg by mouth 2 times daily as needed Active sodium chloride (OCEAN; BABY AYR) 0.65 % nasal spray [place] 1 spray into each nostril 2 times daily as needed Active meloxicam (MOBIC) 15 MG tablet Take 1 (one) tablet by mouth once daily 30 tablet 2 05/23/2021 Active Additional Information Patient not taking.Reported on 05/24/2021 Active Problems Problem Noted Date Diagnosed Date Previous delivery affecting 0 06/16/2020 arrhythmia affecting , antepartum 06/09/2020 Overview (06/09/2020): SVT(220), relative bradycardia (115), dropped beats (block 2nd degree?), PACs, ?Sick sinus? NSR at about 130bpm Dr De Los Santos to review [facility] for pulmonary maturity 06/09- CS to be scheduled Possible early delivery Needs EKG and echo in period Obesity affecting 06/02/2020 Abnormal finding on ultrasound 06/02/2020 Overview (06/02/2020): PAC's visualized 05/25/20 on outside scan. Second 06/02/2020 Overview (06/02/2020): B-, Negative, Immune, Rpr-NR, HIV-NR, HBsag-NR Plts-214 NIPT- Low Risk/FE AFP-Normal Single liveborn infant, delivered by Paresthesia of skin 05/26/2019 Right shoulder pain 06/23/2018 Body mass index (BMI) of 50.0 to 59.9 in adult 0 08/27/2017 Plantar fasciitis 03/01/2017 Plantar fasciitis 02/28/2017 Acute post-operative pain Resolved Problems Problem Noted Date Diagnosed Date Resolved Date Irregular bleeding 05/26/2019 Encounter for routine follow-up 05/26/2019 06/02/2020 Encounter for surveillance o f implantable subdermal contraceptive 05/26/2019 06/02/2020 Encntr for general adult med ical exam w/o abnormal findings 05/26/2019 06/02/2020 Encounter for supervision of other normal , third trimester 05/26/2019 06/02/2020 Encounter for supervision of normal first , second trimester 05/26/2019 06/02/2020 Encounter for supervision of normal first , third trimester 05/26/2019 06/16/2020 Encounter for test, result negative 05/26/19 20 06/02/2020 Vaginitis 05/26/2019 06/02/2020 Encntr for obstetrics gyn exam (general ) (routine) w/o abn findings 07/08/2016 06/02/2020 37 weeks gestation of 01/11/2016 06/02/2020 Maternal care for unstable l ie, not applicable or unspecified 01/11/2016 06/02/2020 29 weeks gestation of 11/14/2015 06/02/2020 Maternal care for other know n or suspected poor growth, second trimester, not applicable or unspecified 10/09/2015 06/02/2020 24 weeks gestation of 10/09/2015 06/02/2020 Immunizations Name Administration Dates Next Due MMR 06/18/2020(Deferred: - pt is rub karma immune) Rho D Immune Globulin 06/17/2020 TDAP (7yrs+) 06/17/2020 Family History Medical History Relation Name Comments CAD (Coronary Artery Disease) Maternal Grandfather Diabetes - Type 2 Maternal Grandfather Diabetes - Type 2 Maternal Grandmother Diabetes - Type 2 Paternal Grandfather Diabetes - Type 2 Paternal Grandmother Relation Name Status Comments Maternal Grandfather Maternal Grandmother Paternal Grandfather Paternal Grandmother Social History Tobacco Use Types Packs/Day Years Used Date Smoking Tobacco: Never Smokeless Tobacco: Never Alcohol Use Standard Drinks/Week Comments Not Currently 0 (1 standard drink = 0.6 oz pur e alcohol) Occasional Sex and Gender Information Value Date Recorded Sex Assigned at Not on file Gender Identity Not on file Sexual Orientation Not on file Last Filed Vital Signs Vital Sign Reading Time Taken Comments Blood Pressure 108/72 05/10/2021 2:15 PM RESIDENT BUYER Pulse 70 05/10/2021 2:15 PM RESIDENT BUYER Temperature 36.7 C (98.1 F) 05/10/2021 2:15 PM RESIDENT BUYER Respiratory Rate 16 05/10/2021 2:15 PM RESIDENT BUYER Oxygen Saturation 99% 05/10/2021 2:15 PM RESIDENT BUYER Inhaled Oxygen Concentration - - Weight 141.1 kg (311 lb) 05/10/2021 9:43 AM RESIDENT BUYER Height 157.5 cm (5' 2 ) 05/10/2021 9:43 AM RESIDENT BUYER Body Mass Index 56.88 05/10/2021 9:43 AM RESIDENT BUYER Plan of Treatment Health Maintenance Due Date Last Done Comments PAP SMEAR 1995 HIV SCREENING 2010 HEPATITIS C SCREENING 04/02/2013 HEPATITIS B VACCINE (1 of 3 - 19+ 3-dose series) 2014 COVID-19 VACCINE (2023-2 5 season) 2023 INFLUENZA VACCINE (#1) 2023 DEPRESSION SCREENING 03/31/2024 DTAP/TDAP/TD VACCINES (2 - T d or Tdap) 06/17/2030 06/17/2020 ZOSTER VACCINE (1 of 2) 2045 HIB VACCINE Aged Out No longer eligi ble based on patient's age to complete this topic HPV VACCINE Aged Out No longer eligi ble based on patient's age to complete this topic MENINGOCOCCAL (Group B) VACC INE SHARED DECISION-MAKING Aged Out No longer eligibl e based on patient's age to complete this topic MENINGOCOCCAL GROUPS A/C/Y/W VACCINE Aged Out No longer eligible b ased on patient's age to complete this topic PNEUMOCOCCAL VACCINE Aged Out No long er eligible based on patient's age to complete this topic Medical Devices Implanted Type Area Training Facilitator Device Identifier Shelf Expiration Date Model / Serial / Lot Trimble Sut Penny Proknot Bcrl Rapide Implanted:Qty: 2 on 05/10/2021 by Ronn Lei MD at [facility] Right: Shoulder [employer] 12/29/2023 [id number] / / [id number] Advance Directives * Full Code (Latest Code Status on File) Date Activated Date Inactivated Comments 06/16/2020 12:47 PM 06/18/2020 4:22 PM * Full Code Date Activated Date Inactivated Comments 06/15/2020 3:00 PM 06/16/2020 12:47 PM Care Teams Litigation Assistant Relationship Specialty Start Date End Date Merritt Hicks [address] [place] [phone] PCP - General 11/15/20
--- OUTSIDE RECORDS SUMMARY | 2024-06-27 08:16 | XMS_ITS | Clinical Summary ---
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
--- OUTSIDE RECORDS SUMMARY | 2024-06-27 08:19 | XMS_ITS | Continuity of Care Document ---
Author Organization [employer] [place] Address [address] [place] [address] [address] [place] [address] Phone Care Team Providers Care Waist Presser Name Role Phone Laurie Wood DPT Unavailable [...] Diagnoses Date Provider Providers Copied on Encounter [facility] [address], [id number], tel:[phone] [place] No Information 4201 8 Nina Laurie. [address] [place] [address], [facility] [address], [place], [facility], [place]. tel:[phone] Referring Provider: Pierce Harris, 2043 [facility] 6, [place], [place], [facility]. tel:[phone] [place] [address], [id number], [place] tel:[phone] [place] Pain in right shoulderStiff ness of right shoulder, not elsewhere classifiedOth symptoms and signs involving the musculoskelet al systemUnspeci fied sprain of right shoulder joint, subs encntr 8-201 8 [place] Laurie. [address] [facility], [address], [place], [place], [facility], [place]. tel:[phone] Referring Provider: Pierce Harris, 2043 [facility] [address], [place], [address]. tel:[phone] [place], [place] [id number] [facility] [address], [place], [id number], [place] tel:[phone] [place] Pain in right shoulderStiff ness of right shoulder, not elsewhere classifiedOth symptoms and signs involving the musculoskelet al systemUnspeci fied sprain of right shoulder joint, subs encntr 5-201 8 [place] Laurie. [address] [facility], [address], [place], [facility], [place]. tel:[phone] Referring Provider: Pierce Harris, [address]43 [facility] [address], [place], [address]. tel:[phone] [facility]2121 [facility] [address], [place], [id number], [place] tel:[phone] [place] Pain in right shoulderStiff ness of right shoulder, not elsewhere classifiedOth symptoms and signs involving the musculoskelet al systemUnspeci fied sprain of right shoulder joint, subs encntr Sep-2 3-201 8 Nina Laurie. [address] [place] [address], [address], [place], [facility], [place]. tel:[phone] Referring Provider: Pierce Harris, 2043 [facility] [address], [place], [address]. tel:[phone] [facility] [address] [facility], [place], [place], [id number], [place] tel:[phone] [place] Pain in right shoulderStiff ness of right shoulder, not elsewhere classifiedOth symptoms and signs involving the musculoskelet al systemUnspeci fied sprain of right shoulder joint, subs encntr 0-201 8 Nina Laurie. [address] [place] [address], [address], [place], [facility], [place]. tel:[phone] Referring Provider: Pierce Harris, 2043 [facility] [address], [place], [address]. tel:[phone] [facility] [address] [address], [place], [place], [id number], [place] tel:[phone] [place] Pain in right shoulderStiff ness of right shoulder, not elsewhere classifiedOth symptoms and signs involving the musculoskelet al systemUnspeci fied sprain of right shoulder joint, subs encntr Sep- 8-201 8 [place] Denise. . Referring Provider: Pierce Harris, [address]43 [facility] [address], [place], [address]. tel:[phone] [facility]2[address] [facility], [place], [place], [id number], [place] tel:[phone] [place] Pain in right shoulderStiff ness of right shoulder, not elsewhere classifiedOth symptoms and signs involving the musculoskelet al systemUnspeci fied sprain of right shoulder joint, subs encntr Sep- 7-201 8 [place] Denise. . Referring Provider: Pierce Harris, 2043 [facility] 6, [place], [address]. tel:[phone] [place] [address] [address] [facility], [place], [place], [id number], [place] tel:[phone] [place] Pain in right shoulderStiff ness of right shoulder, not elsewhere classifiedOth symptoms and signs involving the musculoskelet al systemUnspeci fied sprain of right shoulder joint, subs encntr Aug-2 2-201 8 Nina Laurie. [address] [place] [address], [address], [place], [place], [facility], [place]. tel:[phone] Referring Provider: Pierce Harris, 2043 [facility] [address], [place], [place], [facility]. tel:[phone] [place] [address] 2121 [facility] [address], [place], [id number], [place] tel:[phone] [place] Pain in right shoulderStiff ness of right shoulder, not elsewhere classifiedOth symptoms and signs involving the musculoskelet al systemUnspeci fied sprain of right shoulder joint, subs encntr Aug-1 9-201 8 [place] Laurie. [address] [place] [address], [address], [place], [place], [facility], [place]. tel:[phone] Referring Provider: Pierce Harris, 2043 [facility] [address], [place], [place], [facility]. tel:[phone] [place] [address] [place], [place] [address], [place], [place], [id number], [place] tel:[phone] [place] Pain in right shoulderStiff ness of right shoulder, not elsewhere classifiedOth symptoms and signs involving the musculoskelet al systemUnspeci fied sprain of right shoulder joint, subs encntr Aug-1 4-201 8 [place] Laurie. [address] [place] [address], [address], [place], [place], [facility], [place]. tel:[phone] Referring Provider: Pierce Harris, 2043 [facility] 6, [place], [address]. tel:[phone] [place] [address], [id number], [place] tel:[phone] [place] Pain in right shoulderStiff ness of right shoulder, not elsewhere classifiedOth symptoms and signs involving the musculoskelet al systemUnspeci fied sprain of right shoulder joint, subs encntr Brien-1 2-201 8 Nina Laurie. [address] [place] [address], [address], [place], [facility], [place]. tel:[phone] Referring Provider: Pierce Harris, [address] [address], [place], [place], [facility]. tel:[phone] [place] [address], [id number], [place] tel:[phone] [place] Pain in right shoulderStiff ness of right shoulder, not elsewhere classifiedOth symptoms and signs involving the musculoskelet al systemUnspeci fied sprain of right shoulder joint, subs encntr Brien-1 1-201 8 [place] Laurie. [address] [place] [address], [address], [place], [place], [facility], [place]. tel:[phone] Referring Provider: Pierce Harris, [address], [address]. tel:[phone] [place] [address] 2121 [facility] [address], [place], [id number], [place] tel:[phone] [place] Pain in right shoulderStiff ness of right shoulder, not elsewhere classifiedOth symptoms and signs involving the musculoskelet al systemUnspeci fied sprain of right shoulder joint, subs encntr Brien-0 7-201 8 Nina Laurie. [address] [place] [address], [address], [place], [place], [facility], [place]. tel:[phone] Referring Provider: Pierce Harris, 2043 [facility] [address], [place], [address]. tel:[phone] Family History Family Member Type Diagnosis Age At Onset No Information Payers Payer name Insurance type Covered constitution party ID Authoriza tipeace(s) [employer] EPO WC [id number] Social History Type Description Quantity Date Captured [...]
--- OUTSIDE RECORDS SUMMARY | 2024-06-27 08:19 | XMS_ITS | Data Portability ---
Author Organization [facility] Address [address] [place] [address] Care Team Providers Care Coal Sampler Name Role Phone SUELLEN PINTO Primary Care Provider Assessment Encounter Date Assessment Date Assessment LastModified by Organization Details LastModified Time 04/29/2022 04/29/2022 Annual gynecological exam performed. Patient will come back in a year unless there are new symptoms. Not available 04/29/2022 13:01:56 05/30/2023 05/30/2023 Annual gynecological exam performed. Patient will come back in a year unless there are new symptoms. [email or web address] Not available 05/30/2023 16:02:07 Plan of Treatment Reminders Order Date Submit Date Provider Last Modified By Organization Details Last Modified Time Details Appointments None recorded. Lab CBC w/ auto diff [address] [facility] (Lab), [address], [place], [address], 4 04:03:54 CMP, serum or plasma [address] [facility] (Lab), [address], [place], [address], 4 04:03:55 lipid panel, blood [address] [facility] (Lab), [address] [place], [address], 4 04:03:55 TSH, serum or plasma [address] [facility] (Lab), [address], [place], [address], 4 04:03:55 vitamin D, 25-hydroxy, total, serum [address] [facility] (Lab), [address], [place], [address], 4 04:03:56 CBC w/ auto diff [address] [facility] (Lab), [address], [place], [address], 3 05:21:07 CMP, serum or plasma [address] [facility] (Lab), [address], [place], [address], 3 05:21:08 lipid panel, blood [address] [facility] (Lab), [address], [place], [address], 3 05:21:08 TSH, serum or plasma [address] [facility] (Lab), [address], [place], [address], 3 05:21:08 vitamin D, 25-hydroxy, total, serum [address] [facility] (Lab), [address], [place], [address], 3 05:21:09 HbA1c (hemoglobin A1c), blood [address] [facility] (Lab), [address], [place], [address], 3 05:21:09 test, urine 2020 021 [facility], [address], [address], [place], [address], 14:22:[address] referral 2023 024 [email or web address] [facility], [address], [place], [address], 4 12:13:51 Procedures None recorded. Surgeries None recorded. Imaging None recorded. Medication Orders None recorded. Patient TargetsNo targets recorded. Patient InstructionsNo instructions recorded. 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, Encounter Date: 05/13/2023 Results Created Date Observation Date Name Description Value Unit Range Abnormal Flag Note LastModifiedBy Organization Detail LastModifiedTime 07/28/1907/27/2020 CT + NG + TV, RNA, unspe cifie d speci men chlamydia trachomatis, PCR Negati ve negati ve Not Available [facility] (Lab) [address], [place], [address], 07/28/2020 14:17:55 07/28/19 21 07/27/2020 CT + NG + TV, RNA, unspe cifie d speci men neisseria gonorrhoeae, PCR Negati ve negati ve Not Available [facility] (Lab) [address] , [place], [address], 07/28/2020 14:17:55 07/28/19 21 07/27/2020 CT + NG + TV, RNA, unspe cifie d speci men trichomonas vaginalis ribosomal RNA (rrna) Negati ve negati ve Not Available [facility] (Lab) [address], [place], [address], 07/28/2020 14:17:55 07/28/19 21 07/27/2020 pregn jay test, urine HCG negati ve Not Available [facility] [address], [place], [address], 07/27/2020 14:22:29 04/29/19 23 04/29/2022 CBC W/DIF F WBC 5.0 10'3/ uL 3.6-10 .2 Not Available [facility] (Lab) [address], [place], [address], 04/30/2022 05:21:07 04/29/19 23 04/29/2022 CBC W/DIF F RBC 4.42 10'6/ uL (based on docume nted legal sex) 4.10-5 .30 Not Available [facility] (Lab) [address], [place], [address], 04/30/2022 05:21:07 04/29/19 23 04/29/2022 CBC W/DIF F HGB 12.5 g/dL (based on docume nted legal sex) 11.9-1 5.8 Not Available [facility] (Lab) [address], [place], [address], 04/30/2022 05:21:07 04/29/19 23 04/29/2022 CBC W/DIF F HCT 38.7 % (based on docume nted legal sex) 37.4-4 8.3 Not Available [facility] (Lab) [address], [place], [address], 04/30/2022 05:21:07 04/29/19 23 04/29/2022 CBC W/DIF F MCV 87.6 fL 82.0-9 9.0 Not Available [facility] (Lab) [address], [place], [address], 04/30/2022 05:21:07 04/29/19 23 04/29/2022 CBC W/DIF F MCH 28.3 pg 27.0-3 3.0 Not Available [facility] (Lab) [address], [place], [address], 04/30/2022 05:21:07 04/29/19 23 04/29/2022 CBC W/DIF F MCHC 32.3 g/dL 32.0-3 6.0 Not Available [facility] (Lab) [address], [place], [address], 04/30/2022 05:21:07 04/29/19 23 04/29/2022 CBC W/DIF F RDW 13.0 % 11.0-1 5.0 Not Available [facility] (Lab) [address], [place], [address], 04/30/2022 05:21:07 04/29/19 23 04/29/2022 CBC W/DIF F plt 222 10'3/ uL 150-45 0 Not Available [facility] (Lab) [address], [place], [address], 04/30/2022 05:21:07 04/29/19 23 04/29/2022 CBC W/DIF F MPV 11.9 fL 9.8-12 .7 Not Available [facility] (Lab) [address], [place], [address], 04/30/2022 05:21:07 04/29/19 23 04/29/2022 CBC W/DIF F NRBC's 0.0 % 0 Not Available [facility] (Lab) [address], [place], [address], 04/30/2022 05:21:07 04/29/19 23 04/29/2022 CBC W/DIF F absolute NRBCs 0.0 10'3/ uL 0 Not Available [facility] (Lab) [address] [place], [address], 04/30/2022 05:21:07 04/29/19 23 04/29/2022 CBC W/DIF F neutrophils 58.4 % 37.0-7 2.0 Not Available [facility] (Lab) [address] [place], [address], 04/30/2022 05:21:07 04/29/19 23 04/29/2022 CBC W/DIF F lymphocytes 29.0 % 16.0-4 8.0 Not Available [facility] (Lab) [address], [place], [address], 04/30/2022 05:21:07 04/29/19 23 04/29/2022 CBC W/DIF F monocytes 8.0 % 4.0-14 .0 Not Available [facility] (Lab) [address], [place], [address], 04/30/2022 05:21:07 04/29/19 23 04/29/2022 CBC W/DIF F eosinophils 3.8 % 0.0-9. 0 Not Available [facility] (Lab) [address], [place], [address], 04/30/2022 05:21:07 04/29/19 23 04/29/2022 CBC W/DIF F basophils 0.6 % 0.0-2. 0 Not Available [facility] (Lab) [address], [place], [address], 04/30/2022 05:21:07 04/29/19 23 04/29/2022 CBC W/DIF F immature granulocytes 0.2 % no define d refere nce range Not Available [facility] (Lab) [address], [place], [address], 04/30/2022 05:21:07 04/29/19 23 04/29/2022 CBC W/DIF F absolute neutrophils 2.9 10'3/ uL 1.1-6. 0 Not Available [facility] (Lab) [address], [place], [address], 04/30/2022 05:21:07 04/29/19 23 04/29/2022 CBC W/DIF F absolute lymphocytes 1.5 10'3/ uL 0.7-3. 4 Not Available [facility] (Lab) [address], [place], [address], 04/30/2022 05:21:07 04/29/19 23 04/29/2022 CBC W/DIF F absolute monocytes 0.4 10'3/ uL 0.3-1. 0 Not Available [facility] (Lab) [address], [place], [address], 04/30/2022 05:21:07 04/29/19 23 04/29/2022 CBC W/DIF F absolute eosinophils 0.2 10'3/ uL 0.0-0. 6 Not Available [facility] (Lab) [address], [place], [address], 04/30/2022 05:21:07 04/29/19 23 04/29/2022 CBC W/DIF F absolute basophils 0.0 10'3/ uL 0.0-0. 1 Not Available [facility] (Lab) [address], [place], [address], 04/30/2022 05:21:07 04/29/19 23 04/29/2022 CBC W/DIF F absolute immature granulocytes 0.0 10'3/ uL 0.00-0 .10 2022 3:33 AM: P indic ates parti al resul ts on a panel have been relea sed. Addit ional resul ts will follo w. 2022 3:33 AM: This resul t has been final verif ied. No addit ional or lux ed resul ts are expec florencia. Not Available [facility] (Lab) [address], [place], [address], 04/30/2022 05:21:07 04/29/1904/29/2022 LIPID PANEL ,AMA (LDL- CALC) total cholesterol 167 mg/dL 0-199 Not Available [facility] (Lab) [address], [place], [address], 04/30/2022 05:21:07 04/29/19 23 04/29/2022 LIPID PANEL ,AMA (LDL- CALC) triglyceride s 147 mg/dL 0.00-1 50.00 NCEP Refer ence Value s for Trigl yceri alexis: Alize l: <150 mg/dL Borde rline High: 150 - 199 mg/dL High: 200 - 499 mg/dL Very High: >/= 500 mg/dL Not Available [facility] (Lab) [address], [place], [address], 04/30/2022 05:21:07 04/29/19 23 04/29/2022 LIPID PANEL ,AMA (LDL- CALC) HDL cholesterol 36 mg/dL >40 low Not Available [facility] (Lab) [address], [place], [address], 04/30/2022 05:21:07 04/29/19 23 04/29/2022 LIPID PANEL ,AMA (LDL- CALC) LDL cholesterol 102 mg/dL 0-99 high Cutof f value s recom greer d by the Natio nal Suki stero l Educa tion Progr am: FERMIN ABLE: Suki stero l <200 mg/dL LDL <100 mg/dL BORDE RLINE : Suki stero l 200-2 39 mg/dL LDL 101-1 59 mg/dL HIGHE R RISK: Suki stero l >240 mg/dL LDL >160 mg/dL , HDL <40 mg/dL Not Available [facility] (Lab) [address], [place], [address], 04/30/2022 05:21:07 04/29/19 23 04/29/2022 LIPID PANEL ,AMA (LDL- CALC) non-HDL cholesterol 131 mg/dL no refere nce range A reaso nable goal for non-H DL suki stero l is one that is 30 mg/dL highe r than the LDL suki stero l goal. Not Available [facility] (Lab) [address] [place], [address], 04/30/2022 05:21:07 04/29/19 23 04/29/2022 LIPID PANEL ,AMA (LDL- CALC) chol/HDL ratio 4.6 . 0.0-5. 0 Not Available [facility] (Lab) [address], [place], [address], 04/30/2022 05:21:07 04/29/19 23 04/29/2022 CMP(C OMPRE HENSI VE METAB OLIC PANEL ) sodium 138 mmol/ L 133-14 6 Not Available [facility] (Lab) [address], [place], [address], 04/30/2022 05:21:08 04/29/19 23 04/29/2022 CMP(C OMPRE HENSI VE METAB OLIC PANEL ) potassium 4.2 mmol/ L 3.5-5. 1 Not Available [facility] (Lab) [address], [place], [address], 04/30/2022 05:21:08 04/29/19 23 04/29/2022 CMP(C OMPRE HENSI VE METAB OLIC PANEL ) chloride 102 mmol/ L 98-107 Not Available [facility] (Lab) [address], [place], [address], 04/30/2022 05:21:08 04/29/19 23 04/29/2022 CMP(C OMPRE HENSI VE METAB OLIC PANEL ) carbon dioxide 28 mmol/ L 21-31 Not Available [facility] (Lab) [address], [place], [address], 04/30/2022 05:21:08 04/29/19 23 04/29/2022 CMP(C OMPRE HENSI VE METAB OLIC PANEL ) anion gap 8 mmol/ L 4-13 Not Available [facility] (Lab) [address], [place], [address], 04/30/2022 05:21:08 04/29/19 23 04/29/2022 CMP(C OMPRE HENSI VE METAB OLIC PANEL ) blood urea nitrogen 10 mg/dL 7-25 Not Available [facility] (Lab) [address], [place], [address], 04/30/2022 05:21:08 04/29/19 23 04/29/2022 CMP(C OMPRE HENSI VE METAB OLIC PANEL ) creatinine 0.71 mg/dL 0.60-1 .30 Not Available [facility] (Lab) [address], [place], [address], 04/30/2022 05:21:08 04/29/19 23 04/29/2022 CMP(C OMPRE HENSI VE METAB OLIC PANEL ) egfrcr (CKD-epi 2020) >90 mL/mi n/1.7 3_m2 >=60 Not Available [facility] (Lab) [address], [place], [address], 04/30/2022 05:21:08 04/29/19 23 04/29/2022 CMP(C OMPRE HENSI VE METAB OLIC PANEL ) calcium 9.1 mg/dL 8.3-10 .5 Not Available [facility] (Lab) [address], [place], [address], 04/30/2022 05:21:08 04/29/19 23 04/29/2022 CMP(C OMPRE HENSI VE METAB OLIC PANEL ) glucose 78 mg/dL 70-100 Not Available [facility] (Lab) [address], [place], [address], 04/30/2022 05:21:08 04/29/19 23 04/29/2022 CMP(C OMPRE HENSI VE METAB OLIC PANEL ) protein, total 7.3 g/dL 6.4-8. 3 Not Available [facility] (Lab) [address], [place], [address], 04/30/2022 05:21:08 04/29/19 23 04/29/2022 CMP(C OMPRE HENSI VE METAB OLIC PANEL ) albumin 4.3 g/dL 3.5-5. 0 Not Available [facility] (Lab) [address], [place], [address], 04/30/2022 05:21:08 04/29/19 23 04/29/2022 CMP(C OMPRE HENSI VE METAB OLIC PANEL ) ALT 11 units /L 9-43 Not Available [facility] (Lab) [address], [place], [address], 04/30/2022 05:21:08 04/29/19 23 04/29/2022 CMP(C OMPRE HENSI VE METAB OLIC PANEL ) alkaline phosphatase 126 units /L 34-104 high Not Available [facility] (Lab) [address], [place], [address], 04/30/2022 05:21:08 04/29/19 23 04/29/2022 CMP(C OMPRE HENSI VE METAB OLIC PANEL ) AST 12 units /L 13-39 low Not Available [facility] (Lab) [address], [place], [address], 04/30/2022 05:21:08 04/29/19 23 04/29/2022 CMP(C OMPRE HENSI VE METAB OLIC PANEL ) bilirubin, total 0.6 mg/dL 0.2-1. 2 Not Available [facility] (Lab) [address], [place], [address], 04/30/2022 05:21:08 04/29/19 23 04/29/2022 TSH, REFLE X FREE T4 TSH 1.69 uIU/m L 0.30-5 .33 Not Available [facility] (Lab) [address] [place], [address], 04/30/2022 05:21:08 04/29/19 23 04/29/2022 VITAM IN D, 25-OH (TOTA L D2/D3 ) vitamin D, 25-hydroxy, total 10.0 NG/mL 30.0-1 00.0 low Sugge stive of Defic iency : <20 ng/mL Sugge stive of Insuf ficie ncy: 20-29 ng/mL Sugge stive of Suffi cienc y: 30-10 0 ng/mL Sugge stive of Toxic ity: >150 ng/mL Not Available [facility] (Lab) [address], [place], [address], 04/30/2022 05:21:09 04/29/19 23 04/29/2022 HEMOG LOBIN A1C hemoglobin A1C 5.0 % 0-5.6 The Ameri can Diabe tucker Assoc iatio n recom mends that a prima ry goal of thera py shoul d be a HBA1C of < 7% and that physi cians shoul d reeva luate the treat ment regim en in patie nts with HBA1C value s consi stent ly > 8%. <5.7% Alize l 5.7 - 6.4% Incre ased risk for diabe tucker >=6.5 % Diagn ostic of diabe tucker <7.0% Goal of thera py >8.0% Actio n sugge sted Not Available [facility] (Lab) [address], [place], [address], 04/30/2022 05:21:09 04/29/19 23 04/29/2022 IMAGE GUIDE D PAP, REFLE X HPV IF ASCUS ONLY image guided Pap, reflex HPV ASCUS only SEE RESULT S BELOW CASE REPOR T: Cytol ogy Gynec ologi cedric Repor t Case: [id number] Autho marci alaniz Provi jefferson: Kim Soto MD Colle cted: 04/29 1336 Order ing Locat ion: [place] Patho logy Recei nichol: 04/30 1046 First Scree n: Bruce Foss ed, CT Rescr een: Michelle Torres ay, CT Speci men: Scree rodney Pap - Image d, Cervi x STATE MENT OF ADEQU ACY: Satis facto ry for evalu ation Trans forma tion zone compo nent prese nt FINAL DIAGN OSIS: Negat jian for Intra epith elial Lesarnie dillon or Nohemi canchola (NIL) . Elect maryann sandoval augie d by Michelle Torres ay, CT on 023 at 10:57 AM ----- ----- ----- ----- ----- ----- ----- ----- ----- ----- ----- ----- ----- ----- ----- ----- ----- ---- COMME NT: Note: This speci men was revie wed by a Cytot echno logis t and/o r Patho logis t (as indic ated in this repor t) after evalu ation using the Thinp rep Imagi ng Syste m. CLINI CEDRIC INFOR MATIO N: Menst rual Statu s: LMP (if appli cable ): Clini cedric Histo ry/Pr eviou s Pap: Type of Neopl edmond (if appli cable ): Signi fican t Clini cedric Findi ngs: Other Histo ry: Hormo annabelle (if appli cable ): PAP EDUCA MARQUES L NOTE: The Pap Test is a scree rodney test with an inher ent false negat jian rate. Liqui d-bas ed sampl ing may decre ase, but will not elimi dennis, false negat jian resul ts. A negat jian resul t does not precl ude the prese nce and/o r devel opmen t of disea se, since the prese nce of abnor mal cells in the sampl e depen ds on the locat ion of the lesio n and sampl ing techn ique. Andreea nued regul ar scree rodney is the best metho d of cance r preve ntion . If repor florencia cytol ogic findi ng do not corre late with physi cedric and/o r histo rical findi ngs, furth er inves tigat ion is recom greer d, as clif allan nted. Not Available [facility] (Lab) [address], [place], [address], 05/02/2022 11:59:44 09/04/19 23 09/03/2022 VITAM IN D, 25-OH (TOTA L D2/D3 ) vitamin D, 25-hydroxy, total 29.4 NG/mL 30.0-1 00.0 low Sugge stive of Defic iency : <20 ng/mL Sugge stive of Insuf ficie ncy: 20-29 ng/mL Sugge stive of Suffi cienc y: 30-10 0 ng/mL Sugge stive of Toxic ity: >150 ng/mL Not Available [facility] (Lab) [address], [place], [address], 09/04/2022 11:00:14 05/30/19 24 05/30/2023 CBC W/DIF F WBC 8.2 10'3/ uL 3.5-10 .5 Not Available [facility] (Lab) [address], [place], [address], 05/31/2023 04:03:54 05/30/19 24 05/30/2023 CBC W/DIF F RBC 4.49 10'6/ uL (based on docume nted legal sex) 3.80-5 .20 Not Available [facility] (Lab) [address], [place], [address], 05/31/2023 04:03:54 05/30/19 24 05/30/2023 CBC W/DIF F HGB 13.5 g/dL (based on docume nted legal sex) 11.6-1 5.4 Not Available [facility] (Lab) [address], [place], [address], 05/31/2023 04:03:54 05/30/19 24 05/30/2023 CBC W/DIF F HCT 40.0 % (based on docume nted legal sex) 34.0-4 5.0 Not Available [facility] (Lab) [address], [place], [address], 05/31/2023 04:03:54 05/30/19 24 05/30/2023 CBC W/DIF F MCV 89.1 fL 80.0-9 9.0 Not Available [facility] (Lab) [address], [place], [address], 05/31/2023 04:03:54 05/30/19 24 05/30/2023 CBC W/DIF F MCH 30.1 pg 27.0-3 4.0 Not Available [facility] (Lab) [address], [place], [address], 05/31/2023 04:03:54 05/30/19 24 05/30/2023 CBC W/DIF F MCHC 33.8 g/dL 32.0-3 5.5 Not Available [facility] (Lab) [address], [place], [address], 05/31/2023 04:03:54 05/30/19 24 05/30/2023 CBC W/DIF F RDW 12.9 % 11.0-1 5.0 Not Available [facility] (Lab) [address], [place], [address], 05/31/2023 04:03:54 05/30/19 24 05/30/2023 CBC W/DIF F plt 238 10'3/ uL 150-40 0 Not Available [facility] (Lab) [address], [place], [address], 05/31/2023 04:03:54 05/30/19 24 05/30/2023 CBC W/DIF F MPV 12.0 fL 8.8-12 .1 Not Available [facility] (Lab) [address], [place], [address], 05/31/2023 04:03:54 05/30/19 24 05/30/2023 CBC W/DIF F NRBC's 0.0 % 0.0 Not Available [facility] (Lab) [address] [place], [address], 05/31/2023 04:03:54 05/30/19 24 05/30/2023 CBC W/DIF F absolute NRBCs 0.0 10'3/ uL 0.0 Not Available [facility] (Lab) [address], [place], [address], 05/31/2023 04:03:54 05/30/19 24 05/30/2023 CBC W/DIF F neutrophils 67.6 % 34.0-7 3.0 Not Available [facility] (Lab) [address], [place], [address], 05/31/2023 04:03:54 05/30/19 24 05/30/2023 CBC W/DIF F lymphocytes 20.9 % 15.0-5 0.0 Not Available [facility] (Lab) [address], [place], [address], 05/31/2023 04:03:54 05/30/19 24 05/30/2023 CBC W/DIF F monocytes 8.3 % 1.0-15 .0 Not Available [facility] (Lab) [address], [place], [address], 05/31/2023 04:03:54 05/30/19 24 05/30/2023 CBC W/DIF F eosinophils 2.8 % 0.0-8. 0 Not Available [facility] (Lab) [address] [place], [address], 05/31/2023 04:03:54 05/30/19 24 05/30/2023 CBC W/DIF F basophils 0.2 % 0.0-2. 0 Not Available [facility] (Lab) [address] [place], [address], 05/31/2023 04:03:54 05/30/19 24 05/30/2023 CBC W/DIF F immature granulocytes 0.2 % no define d refere nce range Not Available [facility] (Lab) [address] [place], [address], 05/31/2023 04:03:54 05/30/19 24 05/30/2023 CBC W/DIF F absolute neutrophils 5.6 10'3/ uL 1.5-8. 0 Not Available [facility] (Lab) [address], [place], [address], 05/31/2023 04:03:54 05/30/19 24 05/30/2023 CBC W/DIF F absolute lymphocytes 1.7 10'3/ uL 1.0-4. 0 Not Available [facility] (Lab) [address], [place], [address], 05/31/2023 04:03:54 05/30/19 24 05/30/2023 CBC W/DIF F absolute monocytes 0.7 10'3/ uL 0.2-1. 0 Not Available [facility] (Lab) [address], [place], [address], 05/31/2023 04:03:54 05/30/19 24 05/30/2023 CBC W/DIF F absolute eosinophils 0.2 10'3/ uL 0.0-0. 6 Not Available [facility] (Lab) [address], [place], [address], 05/31/2023 04:03:54 05/30/19 24 05/30/2023 CBC W/DIF F absolute basophils 0.0 10'3/ uL 0.0-0. 3 Not Available [facility] (Lab) [address], [place], [address], 05/31/2023 04:03:54 05/30/19 24 05/30/2023 CBC W/DIF F absolute immature granulocytes 0.0 10'3/ uL 0.00-0 .10 024 2:19 AM: P indic ates parti al resul ts on a panel have been relea sed. Addit ional resul ts will follo w. 2:19 AM: This resul t has been final verif ied. No addit ional or lux ed resul ts are expec florencia. Not Available [facility] (Lab) [address] [place], [address], 05/31/2023 04:03:54 05/30/19 24 05/30/2023 LIPID PANEL ,AMA (LDL- CALC) total cholesterol 163 mg/dL 0-199 Not Available [facility] (Lab) [address] [place], [address], 05/31/2023 04:03:55 05/30/19 24 05/30/2023 LIPID PANEL ,AMA (LDL- CALC) triglyceride s 99 mg/dL 0.00-1 50.00 NCEP Refer ence Value s for Trigl yceri alexis: Alize l: <150 mg/dL Borde rline High: 150 - 199 mg/dL High: 200 - 499 mg/dL Very High: >/= 500 mg/dL Not Available [facility] (Lab) [address] [place], [address], 05/31/2023 04:03:55 05/30/19 24 05/30/2023 LIPID PANEL ,AMA (LDL- CALC) HDL cholesterol 47 mg/dL >40 Not Available [facility] (Lab) [address] [place], [address], 05/31/2023 04:03:55 05/30/19 24 05/30/2023 LIPID PANEL ,AMA (LDL- CALC) LDL cholesterol 97 mg/dL 0-99 Cutof f value s recom greer d by the Fl[employer] n[employer] Suki st[employer]ca tion Progr am: FERMIN ABLE: Suki stero l <200 mg/dL LDL <100 mg/dL BORDE RLINE : Suki stero l 200-2 39 mg/dL LDL 101-1 59 mg/dL HIGHE R RISK: Suki stero l >240 mg/dL LDL >160 mg/dL , HDL <40 mg/dL Not Available [facility] (Lab) [address] [place], [address], 05/31/2023 04:03:55 05/30/19 24 05/30/2023 LIPID PANEL ,AMA (LDL- CALC) non-HDL cholesterol 116 mg/dL no refere nce range A reaso nable goal for non-H DL suki stero l is one that is 30 mg/dL highe r than the LDL suki stero l goal. Not Available [facility] (Lab) [address], [place], [address], 05/31/2023 04:03:55 05/30/19 24 05/30/2023 LIPID PANEL ,AMA (LDL- CALC) chol/HDL ratio 3.5 . 0.0-5. 0 On July 23, 2022, [facility] labor atori addie lux ed the equat ion for calcu latin g estim ated low-d ensit y lipop rotei n-cho leste rol (LDL- C) from the Fried sadie equat ion to the Claudia n/Hop kins equat ion. This new equat ion is only valid for lipid panel s with trigl yceri alexis < 400 mg/dL . Yeni real have demon strat ed that this new equat ion will impro ve the accur acy of LDL-C , espec ially in scena [place] when LDL-C desmond ntrat ions are relat ively low (< 100 mg/dL ), trigl yceri alexis are eleva florencia, or patie nt is non-f astin g. Refer ences : - Claudia dillon, Jan Curiel, Melvin Smyth , [facility] margo guerra, Jermain Chatterjee, Jermain wallace, [facility] , and Eliud Torres . 2013. Comp ariso n of a Novel Metho d vs the Fried sadie Equat ion for Estim ating Low-D ensit y Lipop rotei n Suki stero l Level s from the Stand hermilo Lipid Profi le. MONY: The Journ al of the Ameri can Medic al Assoc iatio n 310 (19): 2060- . - Celso gerard V, Lamar J, Conor gerard A, Jessica M, Darrin woods R, Dorie gerard E, Doreen mora RS, Brian SR, Claudia n SS. Fast ing Versu s Nonfa sting and Low-D ensit y Lipop rotei n Suki stero l Accur acy. Circu latio n. 2017Apr 01;137 (1):1 0-19. Not Available [facility] (Lab) [address], [place], [address], 05/31/2023 04:03:55 05/30/19 24 05/30/2023 CMP(C OMPRE HENSI VE METAB OLIC PANEL ) sodium 140 mmol/ L 133-14 6 Not Available [facility] (Lab) [address], [place], [address], 05/31/2023 04:03:55 05/30/19 24 05/30/2023 CMP(C OMPRE HENSI VE METAB OLIC PANEL ) potassium 3.9 mmol/ L 3.5-5. 1 Not Available [facility] (Lab) [address], [place], [address], 05/31/2023 04:03:55 05/30/19 24 05/30/2023 CMP(C OMPRE HENSI VE METAB OLIC PANEL ) chloride 103 mmol/ L 98-107 Not Available [facility] (Lab) [address], [place], [address], 05/31/2023 04:03:55 05/30/19 24 05/30/2023 CMP(C OMPRE HENSI VE METAB OLIC PANEL ) carbon dioxide 27 mmol/ L 21-31 Not Available [facility] (Lab) [address] [place], [address], 05/31/2023 04:03:55 05/30/19 24 05/30/2023 CMP(C OMPRE HENSI VE METAB OLIC PANEL ) anion gap 10 mmol/ L 4-13 Not Available [facility] (Lab) [address] [place], [address], 05/31/2023 04:03:55 05/30/19 24 05/30/2023 CMP(C OMPRE HENSI VE METAB OLIC PANEL ) blood urea nitrogen 13 mg/dL 7-25 Not Available [facility] (Lab) [address], [place], [address], 05/31/2023 04:03:55 05/30/19 24 05/30/2023 CMP(C OMPRE HENSI VE METAB OLIC PANEL ) creatinine 0.93 mg/dL 0.60-1 .30 Not Available [facility] (Lab) [address], [place], [address], 05/31/2023 04:03:55 05/30/19 24 05/30/2023 CMP(C OMPRE HENSI VE METAB OLIC PANEL ) egfrcr (CKD-epi 2020) 86 mL/mi n/1.7 3_m2 >=60 Not Available [facility] (Lab) [address], [place], [address], 05/31/2023 04:03:55 05/30/19 24 05/30/2023 CMP(C OMPRE HENSI VE METAB OLIC PANEL ) calcium 9.6 mg/dL 8.3-10 .5 Not Available [facility] (Lab) [address], [place], [address], 05/31/2023 04:03:55 05/30/19 24 05/30/2023 CMP(C OMPRE HENSI VE METAB OLIC PANEL ) glucose 93 mg/dL 70-100 Not Available [facility] (Lab) [address], [place], [address], 05/31/2023 04:03:55 05/30/19 24 05/30/2023 CMP(C OMPRE HENSI VE METAB OLIC PANEL ) protein, total 7.6 g/dL 6.4-8. 3 Not Available [facility] (Lab) [address], [place], [address], 05/31/2023 04:03:55 05/30/19 24 05/30/2023 CMP(C OMPRE HENSI VE METAB OLIC PANEL ) albumin 4.5 g/dL 3.5-5. 0 Not Available [facility] (Lab) [address], [place], [address], 05/31/2023 04:03:55 05/30/19 24 05/30/2023 CMP(C OMPRE HENSI VE METAB OLIC PANEL ) ALT 18 units /L 9-43 Not Available [facility] (Lab) [address], [place], [address], 05/31/2023 04:03:55 05/30/19 24 05/30/2023 CMP(C OMPRE HENSI VE METAB OLIC PANEL ) alkaline phosphatase 101 units /L 34-104 Not Available [facility] (Lab) [address], [place], [address], 05/31/2023 04:03:55 05/30/19 24 05/30/2023 CMP(C OMPRE HENSI VE METAB OLIC PANEL ) AST 15 units /L 13-39 Not Available [facility] (Lab) [address], [place], [address], 05/31/2023 04:03:55 05/30/19 24 05/30/2023 CMP(C OMPRE HENSI VE METAB OLIC PANEL ) bilirubin, total 0.5 mg/dL 0.2-1. 2 Not Available [facility] (Lab) [address] [place], [address], 05/31/2023 04:03:55 05/30/19 24 05/30/2023 TSH, REFLE X FREE T4 TSH 1.49 uIU/m L 0.30-5 .33 Not Available [facility] (Lab) [address] [place], [address], 05/31/2023 04:03:55 05/30/19 24 05/30/2023 VITAM IN D, 25-OH (TOTA L D2/D3 ) vitamin D, 25-hydroxy, total 18.3 NG/mL 30.0-1 00.0 low Sugge stive of Defic iency : <20 ng/mL Sugge stive of Insuf ficie ncy: 20-29 ng/mL Sugge stive of Suffi cienc y: 30-10 0 ng/mL Sugge stive of Toxic ity: >150 ng/mL Not Available [facility] (Lab) [address], [place], [address], 05/31/2023 04:03:56 05/30/19 24 05/30/2023 IMAGE GUIDE D PAP, REFLE X HPV IF ASCUS ONLY image guided Pap, reflex HPV ASCUS only SEE RESULT S BELOW CASE REPOR T: Cytol ogy Gynec ologi cedric Repor t Case: [id number] Autho marci g Provi jefferson: Kim Soto MD Colle cted: 05/29 1703 Order ing Locat ion: [place] Path[facility] Recei nichol: 06/01 0830 First Scree n: Humaira Momin , CT Rescr een: Daniela Bocanegra ret, CT Speci men: Scree rodney Pap - Image d, Cervi x STATE MENT OF ADEQU ACY: Satis facto ry for evalu ation Trans forma tion zone compo nent absen t The absen ce of an endoc ervic al compo nent was confi rmed by an addit ional scree ner. FINAL DIAGN OSIS: Negat jian for Intra epith elial Ami dillon or Nohemi canchola (NIL) . Jyothi ghosh d by Daniela Bocanegra ret, CT on 024 at 11:31 AM ----- ----- ----- ----- ----- ----- ----- ----- ----- ----- ----- ----- ----- ----- ----- ----- ----- ---- COMME NT: This speci men was revie wed by a Cytot echno logis t and/o r Patho logis t (as indic ated in this repor t) after evalu ation using the Thinp rep Imagi ng Syste m. CLINI CEDRIC INFOR MATIO N: Menst rual Statu s: LMP (if appli cable ): Clini cedric Histo ry/Pr eviou s Pap: Type of Neopl edmond (if appli cable ): Signi fican t Clini cedric Findi ngs: Other Histo ry: Hormo annabelle (if appli cable ): PAP EDUCA MARQUES L NOTE: The Pap Test is a scree rodney test with an inher ent false negat jian rate. Liqui d-bas ed sampl ing may decre ase, but will not elimi dennis, false negat jian resul ts. A negat jian resul t does not precl ude the prese nce and/o r devel opmen t of disea se, since the prese nce of abnor mal cells in the sampl e depen ds on the locat ion of the lesio n and sampl ing techn ique. Andreea nued regul ar scree rodney is the best metho d of cance r preve ntion . If repor florencia cytol ogic findi ng do not corre late with physi cedric and/o r histo rical findi ngs, furth er inves tigat ion is recom greer d, as clini marika allan nted. Not Available [facility] (Lab) [address], [place], [address], 06/05/2023 12:33:24 Result Notes None recorded. Problems Name Problem SNOMED Code Status Onset Date Resolution Date Notes Provider Name and Address Organization Details Recorded Time Normal pregnanc y in multigra karla [id number] Completed 201505/08/2020 Encounte r for suprvsn of normal pregnanc y, third trimeste r;Record ed Elsewher e: No Locat ion: [facility] S ource: EHR Organic Preparation Technician bruce: N Practi ce ID: 0001 Nakul lable Time: 05:45:00 PM Shannon Kern [facility] [place] - [facility] 1 12:22:54 Procedur e Completed 201703/27/2020 Encounte r for checking , reinsert ion or removal of implanta ble subderma l contrace ptive;Re corded Elsewher e: No Locat ion: [place] [facility] S ource: EHR Organic Preparation Technician bruce: N Pkti ce ID: 0001 Nakul lable Time: 11:30:00 AM Elizabet Jamison [facility], [facility] 0 11:44:45 Gestatio n period, 29 weeks [id number] Completed 201503/27/2020 29 weeks gestatio n of pregnanc y;Record ed Elsewher e: No Locat ion: [place] [facility] S ource: EHR Organic Preparation Technician bruce: N Pkti ce ID: 0001 Nakul lable Time: 04:00:00 PM Elizabet Jamison [facility], [facility] 0 11:44:17 Pregnanc y, childbir th and puerperi um finding Completed 201503/27/2020 Encounte r for supervis ion of normal 1st pregnanc y, 2nd trimeste r;Record ed Elsewher e: No Locat ion: James chuck [facility] S ource: EHR Organic Preparation Technician bruce: N Edwin ce ID: 0001 Nakul lable Time: 11:30:00 AM Elizabet Jamison [facility], [facility] [address] 11:44:[address] Concept Completed 201603/27/2020 Encntr for general adult medical exam w/o abnormal findings ;Recorde d Elsewher e: No Locat ion: James chuck [facility] S ource: EHR Organic Preparation Technician bruce: N Pkti ce ID: 0001 Nakul lable Time: 09:45:00 AM Elizabet Jamison [facility], [facility] 0 11:44:55 Gestatio n period, 24 weeks [id number] Completed 201503/27/2020 24 weeks gestatio n of pregnanc y;Record ed Elsewher e: No Locat ion: [place] [facility] S ource: EHR Organic Preparation Technician bruce: N Practi ce ID: 0001 Nakul lable Time: 03:00:00 PM Elizabet hall [facility] 0 11:43:34 Unstable lie [id number] Completed 201503/27/2020 Maternal care for unstable lie, not applicab le or unsp;Rec orded Elsewher e: No Locat ion: [place] [facility] S ource: EHR Organic Preparation Technician bruce: N Practi ce ID: 0001 Nakul lable Time: 05:45:00 PM Elizabet hall, [facility] [address] 11:45:[address] Concept Completed 201603/27/2020 Encntr for rn physician office exam (general ) (routine ) w/o abn findings ;Recorde d Elsewher e: No [facility] S ource: EHR Organic Preparation Technician bruce: N Practi ce ID: 0001 Nakul lable Time: 09:45:00 AM Elizabet hall, [facility] 0 11:45:02 Pregnanc y test negative [id number] Completed 201704/24/2020 Encounte r for pregnanc y test, result negative ;Recorde d Elsewher e: No [facility] S ource: EHR Organic Preparation Technician bruce: N Practi ce ID: 0001 Nakul lable Time: 01:15:00 PM Susan Tristan MD [address], [place], [address], [place] [facility] 1 17:06:26 Body mass index 30+ - obesity 102377474 Completed 201705/08/2020 Body mass index (BMI) 50-59.9 , adult;Re corded Elsewher e: No Locat ion: [place] [facility] S ource: EHR Organic Preparation Technician bruce: N Practi ce ID: 0001 Nakul lable Time: 01:15:00 PM Shannon Kern null, [facility] 1 12:22:49 Pregnanc y, childbir th and puerperi um finding Completed 201503/27/2020 Encntr for suprvsn of normal first preg, third trimeste r;Record ed Elsewher e: No [facility]: E[facility] Organic Preparation Technician bruce: N Pkti ce ID: 0001 Nakul lable Time: 02:45:00 PM Elizabet Jamison null, [facility] 0 11:44:28 Gestatio n period, 37 weeks [id number] Completed 201503/27/2020 37 weeks gestatio n of pregnanc y;Record ed Elsewher e: No Locat ion: [facility] S ource: EHR Organic Preparation Technician bruce: N Edwin ce ID: 0001 Nakul lable Time: 05:45:00 PM Elizabet Jamison null, [facility] 0 11:43:50 Finding of regulari ty of menstrua l cycle Completed 201703/27/2020 Irregula r bleeding ;Recorde d Elsewher e: No Locat ion: [facility] S ource: EHR Organic Preparation Technician bruce: N Edwin ce ID: 0001 Nakul lable Time: 05:00:00 PM Elizabet hall, [facility] 0 11:46:27 Lochia finding Completed 201503/27/2020 Encounte r for routine postpart um follow-u p;Record ed Elsewher e: No Locat ion: [facility] S ource: EHR Organic Preparation Technician bruce: N Pkti ce ID: 0001 Nakul lable Time: 03:45:00 PM Elizabet Jamison null, [facility] 0 11:46:34 finding Completed 201503/27/2020 Matern care for oth or susp poor fetl grth, 2nd tri, unsp;Rec orded Elsewher e: No Locat ion: [facility] S ource: EHR Organic Preparation Technician bruce: N Practi ce ID: 0001 Nakul lable Time: 03:00:00 PM [facility] 11:46:19 Single liveborn born in hospital by section [id number] Completed 201503/27/2020 Single liveborn delivere d by c section; Recorded Elsewher e: No Locat ion: [facility] S ource: EHR Organic Preparation Technician bruce: N Practi ce ID: 0001 Nakul lable Time: 12:00:00 PM [facility] 11:47:02 Clinical finding Completed 201503/27/2020 Maternal care for breech presenta tion, unsp;Pra ctice ID: 0001 Elizabet Jamison [facility] 0 11:43:16 Clinical finding Completed 201503/27/2020 Maternal care for oth malprese ntation of fetus, unsp;Pra ctice ID: 0001 Elizabet Jamison [facility] 0 11:43:23 Gestatio n period, 38 weeks [id number] Completed 201503/27/2020 38 weeks gestatio n of pregnanc y;Practi ce ID: 0001 Elizabet Jamison [facility], [facility] 0 11:44:06 Prematur e labor [id number] Completed 201503/27/2020 labor without delivery , third trimeste r;Practi ce ID: 0001 [facility] 0 11:46:54 Single live [id number] Completed 201503/27/2020 Single live ;Pr actice ID: 0001 Elizabet hall, [facility] 0 11:47:08 Gestatio n period, 39 weeks [id number] Completed 201503/27/2020 39 weeks gestatio n of pregnanc y;Practi ce ID: 0001 Elizabet hall, [facility] 0 11:43:59 Tingling of skin 122200527 Completed 201505/08/2020 Paresthe latoya of skin;Pra ctice ID: 0001 Shannon hall, [facility] 1 12:23:[address] Concept Completed 201503/27/2020 Encounte r for surveill ance of other contrace ptives;P ractice ID: 0001 [facility] 0 11:45:10 Acute vaginiti s [id number] Completed 201605/08/2020 Acute vaginiti s;Practi ce ID: 0001 Shannon hall, [facility] 1 12:22:47 False labor before 37 complete d weeks of gestatio n [id number] 7922486 Completed 201503/27/2020 False labor before 37 complete d weeks of gest, third tri;Prac anna ID: 0001 Elizabet hall, [facility] 0 11:46:45 Gestatio n period, 31 weeks [id number] Completed 201503/27/2020 31 weeks gestatio n of pregnanc y;Practi ce ID: 0001 Elizabet Jamison [facility] 0 11:43:42 Pregnanc y [id number] Completed 201905/08/2020 Fatimah sorto null, [facility] 1 13:29:21 delivery - delivere d [id number] Completed To have repeat @ 38 wks - 06/30/20 schedule d [facility] 13:29:16 Chronic hyperten catherine in obstetri c context [id number] Completed Baby ASA & antenata l testing @ 32 wks / 38wk delivery Fatimah sorto null, [facility] 1 13:29:16 Weight loss [id number] Completed down 21# from prepreg weight. counseli ng done re good food choices Fatimah sorto [facility], [facility] 1 13:29:16 Chronic hyperten catherine in obstetri c context [id number] Completed 05/08/2020 Baby ASA & antenata l testing @ 32 wks / 38wk delivery Shannon Kern [facility], [facility] 1 12:22:50 Obesity 668245911 Completed 05/08/2020 antenata l testing @ 32 wks Shannon Kern null, [facility] 1 12:22:55 Supervis ion of high risk pregnanc y with history of previous section done 5741204684 9106 Completed 2019 rpt c/s [facility] 1 15:13:52 Supervis ion of high risk pregnanc y with history of previous section done [id number] 9106 Completed 201905/08/2020 rpt c/s Shannon Erlin null, [facility] 1 12:22:58 Maternal obesity complica ting pregnanc y, childbir th and the puerperi um, antepart um 3304230303 07 Completed 201905/08/2020 antenata l testing @ 32 wks Shannon Kern [facility], [facility] 12:22:52 Maternal obesity complica ting pregnanc y, childbir th and the puerperi um, antepart um [id number] 07 Completed 2019 antenata l testing @ 32 wks Fatimah sorto null, [facility] 13:29:16 Pregnanc y [id number] Completed 202006/26/2020 Fatimah Huertas l null, [facility] 13:29:21 Prematur e atrial contract ion [id number] Completed 2020 PACs - MFM 06/03/19 21 @ 11:15 no further appts necessar y recommen dations to cont. NST & growth u/s until delivery . Fatimah Huertas l null, [facility] 13:29:16 dysrhyth [facility] [id number] Completed Fatimah Huertas l null, [facility] 13:29:16 Late entry into care [id number] Completed Fatimah Huertas l null, [facility] 13:29:16 Problem Notes None recorded. Procedures Surgical History Date Name Laterality Status Provider Name and Address Organization Details Recorded Time 04/29/19 23 Date of Last Pap Smear completed [facility] 05/13/2023 16:25:37 05/01/19 22 procedure on shoulder completed [facility] 04/29/2022 13:03:44 07/28/19 21 IUD Insertion completed Tal oSto MD [address], [place], [address], [facility] 07/27/2020 14:29:50 04/17/19 20 procedure on shoulder completed [facility] 01/03/2020 11:46:25 01/19/20 16 [facility]07[facility]2019 21:16:49 03/31/19 00 Tonsillectomy completed Clarissa Pillaitz [facility] 12/07/2019 21:17:[address] [facility] 05/13/2023 16:34:03 Orthopedic Surgery completed [facility] 05/13/2023 16:34:03 Imaging Results None recorded. Procedure Notes None recorded. Medical Equipment None Reported. Allergies No known drug allergies Medications Name Sig Start Date Stop Date Status Note LastModified by Organization Details LastModified Time cyclobenz aprine 10 mg tablet take 1 tablet by oral route 2 times every day as needed for neck pain 07/08 completed Prescrib ed Elsewher e: No Locat ion: [place] [facility] M odify By: colton page DateTime : 12/21/19 02:51:03 PM Not Available Not Available Not Available Mirena 21 mcg/24 hr (up to 8 years) 52 mg intrauter ine device Take by intraute rine route. 05/29 completed Not Available Not Available Not Available fluconazo le 100 mg tablet TAKE 2 TABLETS BY MOUTH FOR 1 DAY THEN TAKE 1 TABLET BY MOUTH DAILY THEREAFT ER FOR 13 DAYS 04/29 completed Not Available Not Available Not Available clindamyc in HCl 300 mg capsule TAKE 1 CAPSULE BY MOUTH EVERY 6 HOURS UNTIL GONE 05/13 completed Not Available Not Available Not Available ibuprofen 800 mg tablet TAKE 1 TABLET BY MOUTH 3 TIMES A DAY 05/13 completed Not Available Not Available Not Available benzonata te 200 mg capsule TAKE 1 CAPSULE BY MOUTH THREE TIMES DAILY NEEDED FOR COUGH active Not Available Not Available No t Available hydrocodo ne 5 mg-acetam inophen 325 mg tablet TAKE 1 TABLET BY MOUTH EVERY 6 HOURS NEEDED FOR PAIN 04/29 completed Not Available Not Available Not Available meloxicam 15 mg tablet TAKE 1 TABLET BY MOUTH EVERY DAY 04/29 completed Not Available Not Available Not Available ondansetr on HCl 4 mg tablet TAKE 1 TABLET BY MOUTH EVERY 6 HOURS NEEDED FOR NAUSEA OR VOMITING 04/29 completed Not Available Not Available Not Available famotidin e 40 mg tablet TAKE 1 TABLET BY MOUTH EVERY DAY 06/23 completed Not Available Not Available Not Available prednison e 20 mg tablet TAKE 3 TABLETS BY MOUTH ONCE DAILY FOR 5 DAYS active Not Available Not Available No t Available Diflucan 150 mg tablet take 1 tablet by oral route once 07/08 completed Prescrib ed Elsewher e: No Locat ion: [facility] odify By: colton page DateTime : 05/16/19 02:45:00 PM Not Available Not Available Not Available tramadol 50 mg tablet TAKE 1 TABLET BY MOUTH EVERY 6 HOURS NEEDED 05/13 completed Not Available Not Available Not Available acetamino phen 500 mg tablet TAKE 1 CAPSULE BY MOUTH EVERY 6 HOURS NEEDED FOR FEVER OR PAIN 08/25 completed Not Available Not Available Not Available ondansetr on 8 mg disintegr ating tablet DISSOLVE 1 TABLET ON THE TONGUE TWICE DAILY 04/29 completed Not Available Not Available Not Available ketorolac 10 mg tablet TAKE 1 TABLET BY MOUTH EVERY 6 HOURS 04/29 completed Not Available Not Available Not Available oxycodone -acetamin ophen 5 mg-325 mg tablet TAKE 1 TABLET BY MOUTH EVERY 6 HOURS NEEDED FOR PAIN 08/25 completed Not Available Not Available Not Available amoxicill in 875 mg tablet TAKE 1 TABLET BY MOUTH EVERY 12 HOURS FOR 10 DAYS 05/13 completed Not Available Not Available Not Available Zoloft 50 mg tablet TAKE 1 TABLET BY MOUTH EVERY DAY 04/24 completed Prescrib ed Elsewher e: No Locat ion: [facility] odify By: erin cervantes DateTime : 07/16/19 08:57:54 AM Not Available Not Available Not Available betametha sone valerate 0.1 % topical cream MIX WITH NYSTATIN AND APPLY TO AFFECTED AND SURROUND ING AREAS IN THE MORNING AND EVENING X 2 WEEK 08/25 completed Not Available Not Available Not Available oseltamiv ir 75 mg capsule TAKE 1 CAPSULE BY MOUTH EVERY 12 HOURS FOR 5 DAYS active Not Available Not Available No t Available nystatin 100,000 unit/gram topical cream APPLY TOPICALL Y TO THE AFFECTED AREA TWICE DAILY 05/13 completed Not Available Not Available Not Available clotrimaz ole-betam ethasone 1 %-0.05 % topical cream APPLY TOPICALL Y TO THE AFFECTED AND SURROUND ING AREAS TWICE DAILY IN THE MORNING AND IN THE EVENING FOR 2 WEEKS 08/25 completed Not Available Not Available Not Available polymyxin B sulfate 10,000 unit-trim ethoprim 1 mg/mL eye drops INSTILL 1 DROP IN BOTH EYES EVERY 3 HOURS WHILE AWAKE FOR 7 DAYS DIRECTED 05/13 completed Not Available Not Available Not Available docusate sodium 100 mg capsule TAKE ONE CAPSULE BY MOUTH TWICE DAILY 08/25 completed Not Available Not Available Not Available gabapenti n 300 mg capsule TAKE 1 CAPSULE BY MOUTH THREE TIMES DAILY 04/29 completed Not Available Not Available Not Available buspirone 7.5 mg tablet 04/29 completed Not Available Not Available Not Available monteluka st 10 mg tablet TAKE 1 TABLET BY MOUTH ONCE DAILY IN THE MORNING active Not Available Not Available No t Available hydroxyzi ne HCl 25 mg tablet TAKE 1 TABLET BY MOUTH THREE TIMES DAILY NEEDED FOR PANIC ATTACKS OR SYMPTOMS 04/29 completed Not Available Not Available Not Available mupirocin 2 % topical ointment APPLY SMALL AMOUNT TOPICALL Y TO THE AFFECTED AREA THREE TIMES DAILY FOR 7 DAYS 04/29 completed Not Available Not Available Not Available diclofena c sodium 50 mg tablet,de layed release TAKE 1 TABLET BY MOUTH THREE TIMES DAILY 05/13 completed Not Available Not Available Not Available ergocalci ferol (vitamin D2) 1,250 mcg (50,000 unit) capsule TAKE 1 CAPSULE BY MOUTH EVERY WEEK FOR 12 DAYS active Not Available Not Available No t Available ibuprofen 600 mg tablet TAKE 1 TABLET BY MOUTH EVERY 6 HOURS NEEDED FOR PAIN active Not Available Not Available No t Available albuterol sulfate HFA 90 mcg/actua tion aerosol inhaler INHALE 2 PUFFS BY MOUTH EVERY 4 TO 6 HOURS NEEDED active Not Available Not Available No t Available cefdinir 300 mg capsule TAKE 1 CAPSULE BY MOUTH EVERY 12 HOURS WITH MEALS FOR 7 DAYS 05/13 completed Not Available Not Available Not Available naproxen 500 mg tablet TAKE 1 TABLET BY MOUTH TWICE DAILY WITH MEALS 05/13 completed Not Available Not Available Not Available metoclopr amide 10 mg tablet Take 1 tablet 4 times a day by oral route. 01/02 completed Not Available Not Available Not Available amoxicill in 875 mg-potass ium clavulana te 125 mg tablet TAKE 1 TABLET BY MOUTH EVERY 12 HOURS 05/13 completed Not Available Not Available Not Available amoxicill in 500 mg-potass ium clavulana te 125 mg tablet TAKE 1 TABLET BY MOUTH EVERY 8 HOURS WITH MEALS FOR 7 DAYS 05/13 completed Not Available Not Available Not Available buspirone 15 mg tablet TAKE 1 TABLET BY MOUTH TWICE DAILY DIRECTED active Not Available Not Available No t Available neomycin- polymyxin -hydrocor t 3.5 mg-10,000 unit/mL-1 % ear drops,aníbal p SHAKE LIQUID AND INSTILL 4 DROPS TO AFFECTED EAR THREE TIMES DAILY FOR 5 DAYS 04/29 completed Not Available Not Available Not Available atomoxeti ne 40 mg capsule TAKE 1 CAPSULE BY MOUTH ONCE DAILY IN THE MORNING FOR 30 DAYS 05/13 completed Not Available Not Available Not Available cyclobenz aprine 5 mg tablet take 1 tablet by oral route 3 times every day 07/08 completed Prescrib ed [facility] e: Yes Loca tion: [facility] odify By: colton page DateTime : 10/09/19 16 11:30:00 AM Not Available Not Available Not Available Zofran 05/23 completed Not Available Not Available Not Available Tylenol 02/28 completed Not Available Not Available Not Available Percocet 08/25 completed Not Available Not Available Not Available 02/28 completed Not Available Not Available Not Available atomoxeti ne 80 mg capsule TAKE 1 CAPSULE BY MOUTH ONCE DAILY active Not Available Not Available No t Available Strattera 100 mg capsule TAKE 1 CAPSULE BY MOUTH ONCE DAILY IN THE MORNING active Not Available Not Available No t Available cholecalc iferol (vitamin D3) 1,250 mcg (50,000 unit) capsule TAKE 1 CAPSULE BY MOUTH EVERY WEEK FOR 12 WEEKS active Not Available Not Available No t Available FeroSul 325 mg (65 mg iron) tablet TAKE 1 TABLET BY MOUTH EVERY DAY 08/25 completed Not Available Not Available Not Available ID NOW COVID-19 Test Kit TEST DIRECTED TODAY active Not Available Not Available No t Available Vitals Date Recorded Body height Body mass index (BMI) Body weight Systolic blood pressure Diastolic blood pressure Provider Name and Address Organization Details Last Updated DateTime 07/27/2020 157.48 cm 51.6 kg/m2 443831.0 5 g 121 mm[Hg] 77 mm[Hg] Antonia Serna [facility] 1 14:19:14 Date Recorded Body height Body mass index (BMI) Body weight Systolic blood pressure Diastolic blood pressure Provider Name and Address Organization Details Last Updated DateTime 08/25/2020 157.48 cm 54 kg/m2 955098.7 5 g 120 mm[Hg] 77 mm[Hg] Shannon Kern [facility] 1 12:44:44 Date Recorded Body height Body mass index (BMI) Body weight Systolic blood pressure Diastolic blood pressure Provider Name and Address Organization Details Last Updated DateTime 04/29/2022 157.48 cm 50.8 kg/m2 554530.6 8 g 107 mm[Hg] 74 mm[Hg] Antonia Serna [facility] 3 13:02:19 Date Recorded Body height Body mass index (BMI) Body weight Systolic blood pressure Diastolic blood pressure Provider Name and Address Organization Details Last Updated DateTime 05/13/2023 157.48 cm 46.8 kg/m2 928902.6 5 g 118 mm[Hg] 79 mm[Hg] Antonia [facility] 4 16:33:13 Date Recorded Body height Body mass index (BMI) Body weight Systolic blood pressure Diastolic blood pressure Provider Name and Address Organization Details Last Updated DateTime 05/30/2023 157.48 cm 47.5 kg/m2 910239.5 8 g 126 mm[Hg] 87 mm[Hg] Emily Boudreaux [facility] 4 16:18:02 Social History Question Answer Notes LastModified by Organizat ion Details LastModified Time Tobacco Smoking Status Never Smoker [facility] 06/05/2020 14:45:48 Do You Have An Advance Directive? No Information not available 06/05/2020 What Is Your Level Of Alcohol Consumption? Occasional [email or web address] Information not available 12/07/2019 Are You Blind Or Do You Have Difficulty Seeing? No Information not available 06/05/2020 What Is Your Level Of Caffeine Consumption? Occasional Information not available 05/13/2023 How Much Tobacco Do You Chew? None Information not available 06/05/2020 In The 14 Days Before Symptom Onset, Have You Had Close Contact With A Laboratory-confir med COVID-19 While That Case Was Ill? No Information not available 06/05/2020 In The 14 Days Before Symptom Onset, Have You Had Close Contact With A Person Who Is Under Investigation For COVID-19 While That Person Was Ill? No Information not available 06/05/2020 Have You Been To An Area Known To Be High Risk For COVID-19? No Information not available 06/05/2020 Are You Deaf Or Do You Have Serious Difficulty Hearing? No Information not available 06/05/2020 What Type Of Diet Are You Following? REGULAR Information not available 06/05/2020 Do You Or Have You Ever Used E-cigarettes Or Vape? Never Used Electronic Cigarettes Information not available 06/05/2020 What Is The Highest Grade Or Level Of School You Have Completed Or The Highest Degree You Have Received? [id number] Information not available 06/05/2020 What Is Your Occupation? Unemployed Information not available 06/05/2020 Are There Any Guns Present In Your Home? No Information not available 06/05/2020 What Was The Date Of Your Most Recent Tobacco Screening? 12/07/2019 Information not available 06/05/2020 Do You Use Protection During Sex? No Information not available 06/05/2020 Do You Use Your Seat Belt Or Car Seat Routinely? Yes Information not available 06/05/2020 Do You Have Smoke And Carbon Monoxide Detectors In Your Home? Yes Information not available 06/05/2020 Do You Or Have You Ever Used Smokeless Tobacco? Never Used Smokeless Tobacco Information not available 06/05/2020 How Much Tobacco Do You Smoke? No [email or web address] Information not available 12/07/2019 Do You Feel Stressed (tense, Restless, Nervous, Or Anxious, Or Unable To Sleep At Night)? [id number] Information not available 05/13/2023 Do You Use Any Illicit Or Recreational Drugs? No Information not available 06/05/2020 Do You Use Sunscreen Routinely? No Information not available 06/05/2020 Have You Used IV Drugs? No Information not available 06/05/2020 Sex: Unknown Functional Status Question Answer Note LastModified by Organization D etails LastModified Time Are you able to walk? YESWOREST Information not available 06/05/2020 What is your exercise level? Moderate Information not available 05/13/2023 Mental Status None recorded. Family History Relationship Description Onset Age of this Age Resolved Age Notes LastModified by Organization Details LastModified Time Paternal Grandmother Diabetes mellitus [email or web address] Not available 12/06 21:16:00 Paternal Grandmother Hypercholest erolemia [email or web address] Not available 12/06 21:16:08 Maternal Grandmother Diabetes mellitus [email or web address] Not available 12/06 21:16:00 Medical History Condition Response Allergies (Food, seasonal, environmental ) N Other Y Breast Cancer N Drug/Latex Allergies/Reactions N Blood Transfusion N Lung Disease N Dermatologic Disorders N Defects or Inherited Disease N Breast Problem N Gestational Diabetes N Hematologic disorders N Anesthesia Complications N History of STI N Deep Vein Thrombosis N Polycystic ovary syndrome N Anxiety Disorder N Autoimmune disease N Arthritis N Infertility N Polyps N Acid Reflux (GERD) N History of abnormal pap N Cancer N Stroke N Varicosities N Neurologic/Epilepsy N Endometriosis N High Cholesterol N Headaches N Fibromyalgia N Kidney Disease N Heart Problems N Kidney or Bladder Problems N Thyroid Problems N GI Problems N Eating Disorder N Anemia N Art (IVF or FET) N Psychiatric Illness N Ovarian Cancer N Diabetes N Pulmonary (TB, Asthma) N Hepatitis/Liver Disease N Eczema N Urinary Tract Infection N Abuse/Domestic Violence N Asthma N Trauma/Violence N Depression/ depression N Heart Disease N Pre-Eclampsia N Hypertension N Osteoporosis N Thrombophilias N Gynecological History Statement/Question Response Date of LMP 04/24/2022 On BCP's at Conception? N STIs/STDs N Was last menstrual period normal Y Current Control Method Seeking Pre gnancy Age at First Child 20 Frequency of Cycle (Q days) 5 Sexually Active? Y Age of first menstrual cycle 12 Date of Last Pap Smear 04/29/2022 Sexual Problems? N LMP Approximate Obstetrics History GPAL:G 2 P 2 0 0 2 Type Value Full Term 2 Living 2 Total 2 Past Encounters Encounter ID Performer Location Encounter Start Date Encounter Closed Date Diagnosis/Indication Diagnosis SNOMED-CT Code Diagnosis ICD10 Code Diagnosis Note [id number] [facility] [address] [address] 12/07/2019 10:27:31 12/07/2019 18:36:58 [id number] Eloise William [facility] [address] [address] 12/07/2019 10:28:28 12/07/2019 11:45:55 [id number] [facility] [address],[place] [address] 01/03/2020 11:00:03 01/03/2020 11:44:56 screening 020716847 Z36.82 [id number] Tal Soto MD [facility] [address] [address] 01/03/2020 11:00:42 01/03/2020 12:10:45 Routine care 177752212 Z34.90 [id number] Clemencia Schaffer [facility] [address] [address] 01/31/2020 11:13:44 01/31/2020 13:50:12 Routine care 039391711 Z34.92 [id number] [facility] [address],[place] [address] 01/31/2020 13:15:39 02/01/2020 08:32:42 [id number] Ebonie Walsh [facility] [address] [address] 02/29/2020 16:26:27 02/29/2020 17:47:49 screening for malformation 761892931 Z36.3 [id number] Susan Tristan MD [facility] [address] [address] 02/29/2020 16:27:06 03/01/2020 17:00:40 Chronic hypertension in obstetric context 2828511 I10 Supervisio n of high risk with history of previous section done 5293405322 9106 O09.899 Maternal o besity complicating , childbirth and the puerperium, antepartum 5189667965 07 O99.212 [id number] [facility] [address],[place] [address] 03/28/2020 15:19:58 03/28/2020 16:54:27 screening 610991004 Z36.2 [id number] Susan Tristan MD [facility] [address] [address] 03/28/2020 15:20:29 03/28/2020 17:13:24 Chronic hypertension in obstetric context 5127937 I10 Maternal o besity complicating , childbirth and the puerperium, antepartum 9606983879 07 O99.212 [id number] Heidy Cornell [facility] [address] [address] 04/19/2020 09:32:37 04/20/2020 15:26:18 [id number] [facility] [address],[place] [address] 04/24/2020 15:47:44 04/24/2020 17:25:16 Maternal obesity complicating , childbirth and the puerperium, antepartum 0407308414 07 O99.213 Z3A.28 [id number] Susan Tristan MD [facility] [address] [address] 04/24/2020 15:48:57 04/27/2020 16:52:55 Nausea and vomiting 33471718 R11.2 Chronic hy pertension in obstetric context 2094528 I10 Maternal o besity complicating , childbirth and the puerperium, antepartum 6935051808 07 O99.213 Z3A.28 Supervisio n of high risk with history of previous section done 6386127979 9106 O09.899 Weight loss 48251436 R63 .4 [id number] Clemenciaankita Schaffer [facility] [address] [address] 05/08/2020 14:15:00 05/08/2020 14:43:39 Routine care 478701616 Z34.92 Additional precaution katlyn measures were taken to minimize potential exposure to the Covid-19 virus during this patient s visit, including available hand day habilitation specialist upon arrive, temperatur e check and being asked a series of screening questions. All staff wore face coverings during this encounter, as well as provided additional cleaning and sanitizing of all surfaces, including countertop s, pens, chairs, door handles, light switches, etc, prior to and following the patient s visit. [id number] [facility] [address] [address] 05/22/2020 14:56:42 05/26/2020 10:52:09 [id number] Fatimah Roblero [facility] [address],[place] [address] 05/22/2020 14:56:06 05/22/2020 15:49:53 Maternal obesity complicating , childbirth and the puerperium, antepartum 8567361809 07 O99.213 [id number] Tala Galarza [facility] [address] [address] 05/22/2020 14:56:22 05/22/2020 16:23:53 Maternal obesity complicating , childbirth and the puerperium, antepartum 2706516921 07 O99.210 O36.8330 Z3A.32 [id number] [facility] [address] [address] 05/23/2020 09:52:00 05/23/2020 10:36:31 Routine care 247763059 Z34.92 Additional precaution katlyn measures were taken to minimize potential exposure to the Covid-19 virus during this patient s visit, including available hand day habilitation specialist upon arrive, temperatur e check and being asked a series of screening questions. All staff wore face coverings during this encounter, as well as provided additional cleaning and sanitizing of all surfaces, including countertop s, pens, chairs, door handles, light switches, etc, prior to and following the patient s visit. [id number] Fatimah macias [facility] [address],[place] [address] 05/25/2020 14:51:19 05/25/2020 17:02:36 Maternal obesity complicating , childbirth and the puerperium, antepartum 8202532550 07 O99.213 [id number] [facility] [address],[place] [address] 05/25/2020 15:28:09 05/25/2020 17:01:52 Abnormal heart rate 267356633 O36.8330 Z3A.32 [id number] Clemencia Schaffer [facility] [address] [address] 05/29/2020 14:52:35 05/31/2020 22:38:03 Routine care 695607456 Z34.92 Additional precaution katlyn measures were taken to minimize potential exposure to the Covid-19 virus during this patient s visit, including available hand day habilitation specialist upon arrive, temperatur e check and being asked a series of screening questions. All staff wore face coverings during this encounter, as well as provided additional cleaning and sanitizing of all surfaces, including countertop s, pens, chairs, door handles, light switches, etc, prior to and following the patient s visit. [id number] Tal Soto MD [facility] [address] [address] 05/29/2020 14:52:08 05/30/2020 18:25:38 Maternal obesity complicating , childbirth and the puerperium, antepartum 8438747839 07 O99.213 [id number] [facility] [address],[place] [address] 05/29/2020 15:39:40 05/30/2020 18:24:50 condition affecting obstetrical care of mother 356321586 O36.8330 Z3A.33 [id number] Fatimah Roblero [facility] [address],[place] [address] 06/01/2020 14:49:09 06/01/2020 15:41:55 Maternal obesity complicating , childbirth and the puerperium, antepartum 5724139570 07 O99.213 [id number] Fatimah Osbaldo [facility] [address],[place] [address] 06/05/2020 14:00:07 06/05/2020 14:55:18 Maternal obesity complicating , childbirth and the puerperium, antepartum 2835976188 07 O99.213 [id number] Tal Soto MD [facility] [address],[place] [address] 06/05/2020 14:00:39 06/05/2020 15:49:10 Nausea and vomiting 47771006 R11.2 Routine an tenatal care 133477605 Z34.90 [id number] Fatimah Osbaldo [facility] [address],[place] [address] 06/08/2020 15:47:55 06/08/2020 17:12:01 Maternal obesity complicating , childbirth and the puerperium, antepartum 7631321514 07 O99.213 [id number] Fatimah Osbaldo [facility] [address],[place] [address] 06/12/2020 14:49:59 06/12/2020 15:36:34 Maternal obesity complicating , childbirth and the puerperium, antepartum 1421050557 07 O99.213 [id number] Tal Soto MD [facility] [address],[place] [address] 06/12/2020 14:50:21 06/12/2020 16:35:03 Routine care 477246666 Z34.90 [id number] Tal Soto MD [facility] [address] [address] 06/23/2020 15:49:09 06/25/2020 16:16:07 Postoperative care 652986556 Z48.89 This patient is a 25-year-ol d female who presents for postop follow-up. She is 1 week postop from a delivery. Her incision is clean dry and intact. She has no complaints . Her bleeding is minimal. She denies any nausea, vomiting, fever, chills. She denies any chest pain or shortness of breath. Her baby is doing well. Her mood is good. Patient had delivered an at an outside hospital /Tertiary care center. Her baby had supraventr icular tachycardi a. She was transferre d there. Her baby is stable. They are controllin g the heart rate of the baby. Additional precaution katlyn measures were taken to minimize potential exposure to the Covid-19 virus during this patient s visit, including available hand day habilitation specialist upon arrive, temperatur e check and being asked a series of screening questions. All staff wore face coverings during this encounter, as well as provided additional cleaning and sanitizing of all surfaces, including countertop s, pens, chairs, door handles, light switches, etc, prior to and following the patient s visit. [id number] Tal Soto MD [facility] [address] [address] 07/13/2020 13:59:25 07/13/2020 14:39:57 Postoperative nausea and vomiting 6804864 R11.2 this patient is a 25-year-ol d female presents for post follow-up. She is breastfeed ing. She has not had intercours e. Her baby is doing well. The baby's course was complicate d by a supraventr icular tachycardi a. Baby is being treated by Pediatric Cardiology . Her mood is good. [facility] [id number] Tal Soto MD [facility] [address] [address] 07/20/2020 13:45:14 07/20/2020 14:33:41 Tinea corporis 00256725 B35.4 This patient is a 25-year-ol d female presents for wound irritation . She is about 4 weeks postop from a delivery. She has a moderately size pannus. Underneath the harini s the incision is clean dry and intact however there is about a 3 mm area that has no epidermis. And, there is erythema diffusely over the area of the wound underneath the pannus. We have agreed to treat with a antifungal /steroid cream. She will follow up in about 10 days. [id number] Tal Soto MD [facility] [address] [address] 07/27/2020 13:48:10 07/27/2020 14:30:47 Contraception care management 914196016 Z30.9 IUD insertion performed without complicati ons. She tolerated it well. [id number] Tal Soto MD [facility] [address],[facility] [place] [address] 08/25/2020 12:38:06 08/25/2020 16:26:28 Contraception care management 566703090 Z30.9 IUD inseThis patient is a 25 female who presents for IUD check. [facility]. She has no complaints . She denies any excessive bleeding or pain. She has had some cramping and some spotting. Otherwise, she feels that is going well and wants to continue her IUD.rtion performed without complicati ons. She tolerated it well. [id number] Tal Soto MD [facility] [address],[facility] [place] [address] 04/29/2022 12:35:15 04/29/2022 13:50:46 Gynecologic examination 57608488 Z01.419 Annual gynecologi cedric exam performed. Patient will come back in a year unless there are new symptoms. Suggest Calcium with Vitamin D if not eating in diet. Patient advised to get annual flu shot. Recommend yearly physicals and preform monthly breast exams. Genetic testing is available for patients with family history of cancer. Engage in safe sexual practices, use condoms. Encouraged to have daily exercise. Avoid tobacco and illicit drugs, moderation of alcohol. If BMI greater than 25 dietary consult advised. If you have any questions please call or email. Cholestero l - labs today Pap - today [id number] EMPERATRIZ Shannon [facility] [address] [address] 05/13/2023 15:54:44 05/13/2023 17:31:50 Acne 08642484 L70.9 Discussed alternativ e BC methodsdes ires to keep Mirena IUD in placewe discussed topical acne regimens - acne safe cleanser's , adapalene gel (differin gel) - start by using 1-2 times per week to avoid irritation recommende d dermatolog ist consult - referral placedDisc ussed spironolac tone - r/b/a reviewed. Declined at this time, wants to try topical regimen first Time spent in visit is a total of 20 mins with at least 50% of visit consisting of counseling and review of plan of care. [facility] 240214016 Z30.9 [id number] Tal Soto MD [facility] [address] [address] 05/30/2023 15:48:27 05/31/2023 06:11:51 Gynecologic examination 29470988 Z01.419 Annual gynecologi cedric exam performed. Patient will come back in a year unless there are new symptoms. Suggest Calcium with Vitamin D if not eating in diet. Patient advised to get annual flu shot. Recommend yearly physicals and preform monthly breast exams. Genetic testing is available for patients with family history of cancer. Engage in safe sexual practices, use condoms. Encouraged to have daily exercise. Avoid tobacco and illicit drugs, moderation of alcohol. If BMI greater than 25 dietary consult advised. If you have any questions please call or email. Cholestero l - labs today Pap - today Health Concerns Section Related Observation LastModified by Organization Detai ls LastModified Time None Recorded Concern Status LastModified by Organization Details LastModified Time None Recorded Advance Directives Directive N: Payers Encounter Date Sequence Insurance Name Policy Number Policy Bosch Covered Member ID Bosch Member ID Guarantor Name 07/27/2020 1 [facility] (MEDICAID HMO) [id number] Rosette Whitfield [id number] Rosette Whitfield 08/25/2020 1 [facility] (MEDICAID HMO) [id number] Rosette Whitfield [id number] Rosette Whitfield 04/29/2022 1 [facility] (MEDICAID HMO) [id number] Rosette Whitfield [id number] Rosette Whitfield 05/13/2023 1 [facility] (MEDICAID HMO) [id number] Rosette Whitfield [id number] Rosette Whitfield 05/30/2023 1 [facility] (MEDICAID HMO) [id number] Rosette Whitfield [id number] Rosette Whitfield Notes Date Note Type Note Provider Name and Address Organization Details Recorded Time 07/27/2020 text/html patient presents for IUD insertion.Patient presents for IUD insertion. Tal Soto MD [address], [place], [address], [facility] 07/27/2020 14:30:34 08/25/2020 text/html This patient is a 25 female who presents for IUD check. She had an IUD inserted approximately 1 month ago. She has no complaints. She denies any excessive bleeding or pain. She has had some cramping and some spotting. Otherwise, she feels that is going well and wants to continue her IUD. Tal Soto MD [address], [place], [address], [facility] 08/25/2020 16:09:29 04/29/2022 text/html Annual GYNReport ed bypatient.History:no gynecologic complaints Menstrual cycle:Normal menses Urinary symptoms:No hematuria; No incontinence Vulva:No genital lesion Vagina:Normal vaginal discharge Breast:No breast pain; No breast lump; No nipple discharge Current Contraception:Satisf ied with current contraception; Intrauterine device (iud) Sexual complaints:No sexual complaints; No pain during intercourse Psychological symptoms:No depression;Anxiety(T xed) Preventive measures:Encourage self breast examination; Encourage regular exercise Tal Soto MD [address], [place], [address], [facility] 04/29/2022 13:23:06 05/13/2023 text/html 28yo [id number] ents for evaluation of worsening acneNoticed acne ever since Mirena IUD inserted in 2020 - no acne prior to thishas tried a few OTC products but has not stuck to a consistent regimenlikes the Mirena IUD for BC and would like to keep this method if at all possiblemedical hx : ADHD EMPERATRIZ Shannon [address], [place], [address], [facility] 05/13/2023 17:27:22 05/30/2023 text/html Annual GYNReport ed bypatient.History:no gynecologic complaints Menstrual cycle:Normal menses Urinary symptoms:No hematuria; No incontinence Vulva:No genital lesion Vagina:Normal vaginal discharge Breast:No breast pain; No breast lump Current Contraception:Satisf ied with current contraception; Intrauterine device (iud) Sexual complaints:No sexual complaints; No pain during intercourse Psychological symptoms:No depression;Anxiety(t xed) Preventive measures:Encourage self breast examination; Encourage regular exercise Tal Soto MD [address], [place], [address], [facility] 05/30/2023 17:03:59 OBGyn Episode Ob Episode Information Episode Created Date Number of Fetuses Patient Bloodtype Patient rh Status Prepregnancy Weight lbs Domestic Partner Domestic Partner Phone Father Name Frozen Yogurt Maker Status 12/07/19 20 1 CLOSED Fetus Data First Name Last Name Admitted to NICU Weight (g) Sex Living Outcome Pediatric Complications Fetus ID Race Codes Race Delivery Type 3061.74 6 F Full Term [id number] Primary Julio Calculation Initial Julio Date Initial Exam Date Initial Exam Provider Initial Ultrasound Date Last Menstrual Period Date Ultra Sound Weeks Gestation 0 Eighteen To Twenty Week Julio Update Ultra Sound Date Fundal Height At Umbil Quickening Date Ultra Sound Latest Weeks Gestation Final Julio Confirmed By Final Julio Confirmed Date Final Julio Date Ultra Sound Latest Days Gestation 0 0 Menstrual History Last Menstrual Date Menses Monthly On Bcp Conception Prior Menses Frequency Hcg Plus Date Menarche Onset Age Delivery Information Delivery Date Delivery Type Labor Anesthesia Weeks Gestation Incision Type Labor Labor Length Hrs Delivered By Post Complications Tubal Sterilization Discharge Date Comments 6 39 Discharge Information Feeding Method Contraceptive Method Maternal HG B and HCT Levels Ob Episode Information Episode Created Date Number of Fetuses Patient Bloodtype Patient rh Status Prepregnancy Weight lbs Domestic Partner Domestic Partner Phone Father Name Frozen Yogurt Maker Status 01/03/20 20 1 B Negative 319 CLOSED Fetus Data First Name Last Name Admitted to NICU Weight (g) Sex Living Outcome Pediatric Complications Fetus ID Race Codes Race Delivery Type 2693.20 25 F true Full Term 5036 Repeat Problems Problem Notes Schd @ main [facility] u[facility]s [facility] r 06/09/2020 @ 1:30 r/t tachycardia at [place] on 06/08! Problem Name Start Date End Date Resolution Snomed Code Not e delivery - delivered [id number] To have repeat @ 38 wks - 06/30/20 scheduled Chronic hypertension in obstetric context [id number] Baby ASA & testing @ 32 wks / 38wk delivery Weight loss [id number] down 21# from prepreg weight. counseling done re good food choices Maternal obesity complicating , childbirth and the puerperium, antepartum 02/29/2020 [id number] testi ng @ 32 wks Premature atrial contraction 05/25/2020 [id number] PACs - MF M 06/02/2020 @ 11:15 no further appts necessary recommendations to cont. NST & growth u/s until delivery. BG dysrhythmia [id number] Late entry into care [id number] Julio Calculation Initial Julio Date Initial Exam Date Initial Exam Provider Initial Ultrasound Date Last Menstrual Period Date Ultra Sound Weeks Gestation 07/14/2020 01/03/2020 12/07/2019 10/08/2019 8 Eighteen To Twenty Week Julio Update Ultra Sound Date Fundal Height At Umbil Quickening Date Ultra Sound Latest Weeks Gestation Final Julio Confirmed By Final Julio Confirmed Date Final Julio Date Ultra Sound Latest Days Gestation 0 [email or web address] 01/03/2020 07/15/19 21 0 Pre-meghana Flowsheet Flowsheet Date 12/07/2019 Ordonez Score Blood Edema Fundus Height Fundus Units Glucose Ketones Leukocytes Nitrite Labor Signs Protein Cervic Dilation Cervic Effacement Cervic Station Type Weight in lbs Pre/Post Dialysis Refused BP Diastolic BP Location Tested BP Systolic BP Type 78 157 Fetus Heart Rate Present Fetus Movement Comments Flowsheet Date 01/03/2020 Ordonez Score Blood Edema Fundus Height Fundus Units Glucose Ketones Leukocytes Nitrite Labor Signs Protein Cervic Dilation Cervic Effacement Cervic Station 12 Type Weight in lbs Pre/Post Dialysis Refused Weight 309.65080589120 BP Diastolic BP Location Tested BP Systolic BP Type 83 R wrist 149 sitting Fetus Heart Rate Present A 166 Fetus Movement Comments this patient is a 24-year-ol d 2 para 1001 at 12 weeks gestation who presents for initial visit. She has a previous delivery. We have agreed to repeat . She will begin routine care. She return in 4 weeks for the next visit. Flowsheet Date 01/31/2020 Ordonez Score Blood Edema Fundus Height Fundus Units Glucose Ketones Leukocytes Nitrite Labor Signs Protein Cervic Dilation Cervic Effacement Cervic Station trace Type Weight in lbs Pre/Post Dialysis Refused Weight 302.609068891734 BP Diastolic BP Location Tested BP Systolic BP Type 72 L arm 139 sitting Fetus Heart Rate Present A 145 Fetus Movement A Yes Comments Occasional nausea and vomiti ng. Discussed dietary changes and will switch pnv to night time. Otherwise doing well. Will have gender u/s today. Pt denies history of hypertension. She has had elevated bp at 8 & 12 week visits. Considered chtn. Pt will start baby aspirin daily. Discussed recommendation for 38 week delivery (planning repeat c/s) and twice weekly testing starting @ 32 weeks. Flowsheet Date 01/31/2020 Ordonez Score Blood Edema Fundus Height Fundus Units Glucose Ketones Leukocytes Nitrite Labor Signs Protein Cervic Dilation Cervic Effacement Cervic Station Type Weight in lbs Pre/Post Dialysis Refused BP Diastolic BP Location Tested BP Systolic BP Type Fetus Heart Rate Present Fetus Movement Comments Flowsheet Date 02/29/2020 Ordonez Score Blood Edema Fundus Height Fundus Units Glucose Ketones Leukocytes Nitrite Labor Signs Protein Cervic Dilation Cervic Effacement Cervic Station Type Weight in lbs Pre/Post Dialysis Refused BP Diastolic BP Location Tested BP Systolic BP Type Fetus Heart Rate Present Fetus Movement Comments Flowsheet Date 02/29/2020 Ordonez Score Blood Edema Fundus Height Fundus Units Glucose Ketones Leukocytes Nitrite Labor Signs Protein Cervic Dilation Cervic Effacement Cervic Station neg none trace Type Weight in lbs Pre/Post Dialysis Refused Weight 298.041520732656 BP Diastolic BP Location Tested BP Systolic BP Type 76 131 Fetus Heart Rate Present Fetus Movement A Yes Comments Doing ok. Still not feeling well most days, still vomiting many days. Discussed bland diet, good food choices (not chips, apple pie, fast food, etc). US today anatomy WNL so far, still need profile, feet, LVOT, RVOT; will complete next visit. Taking ASA. Plan R CS 38 weeks (needs to schedule with Beer), monitoring to start at 32. RH neg. Flowsheet Date 03/28/2020 Ordonez Score Blood Edema Fundus Height Fundus Units Glucose Ketones Leukocytes Nitrite Labor Signs Protein Cervic Dilation Cervic Effacement Cervic Station Type Weight in lbs Pre/Post Dialysis Refused BP Diastolic BP Location Tested BP Systolic BP Type Fetus Heart Rate Present Fetus Movement Comments Flowsheet Date 03/28/2020 Ordonez Score Blood Edema Fundus Height Fundus Units Glucose Ketones Leukocytes Nitrite Labor Signs Protein Cervic Dilation Cervic Effacement Cervic Station neg none trace Type Weight in lbs Pre/Post Dialysis Refused Weight 293.309040036759 BP Diastolic BP Location Tested BP Systolic BP Type 75 125 Fetus Heart Rate Present A 140 Fetus Movement A Yes Comments Doing ok, still vomiting jason ry couple days. US today EFW 33%, anatomy now complete and wnl. Will schedule R CS for 38 weeks, will schedule testing starting 32, and growth US. Will do Rhogam and GCT at [facility] at 28 weeks. Flowsheet Date 04/19/2020 Ordonez Score Blood Edema Fundus Height Fundus Units Glucose Ketones Leukocytes Nitrite Labor Signs Protein Cervic Dilation Cervic Effacement Cervic Station Type Weight in lbs Pre/Post Dialysis Refused BP Diastolic BP Location Tested BP Systolic BP Type Fetus Heart Rate Present Fetus Movement Comments Flowsheet Date 04/24/2020 Ordonez Score Blood Edema Fundus Height Fundus Units Glucose Ketones Leukocytes Nitrite Labor Signs Protein Cervic Dilation Cervic Effacement Cervic Station Type Weight in lbs Pre/Post Dialysis Refused BP Diastolic BP Location Tested BP Systolic BP Type Fetus Heart Rate Present Fetus Movement Comments Flowsheet Date 04/24/2020 Ordonez Score Blood Edema Fundus Height Fundus Units Glucose Ketones Leukocytes Nitrite Labor Signs Protein Cervic Dilation Cervic Effacement Cervic Station neg none 34 neg Type Weight in lbs Pre/Post Dialysis Refused Weight 290.0867598134 BP Diastolic BP Location Tested BP Systolic BP Type 81 134 Fetus Heart Rate Present A 130 Fetus Movement A Yes Comments Rh neg, doing rhogam and GCt at [facility] this week. US todya 24%, normal fluid. CS scheduled for /. COmplains of persistent N/V, down another 3#, zofran not working. Admits to both constipation and GERD. will start pepcid and scheduled colace. May improve nausea. Also discussed small frequent snacks and meals . Does keep down fluids down. Precautions given. Needs to schedule testing for MO starting 32 weeks. Flowsheet Date 05/08/2020 Ordonez Score Blood Edema Fundus Height Fundus Units Glucose Ketones Leukocytes Nitrite Labor Signs Protein Cervic Dilation Cervic Effacement Cervic Station 36 Type Weight in lbs Pre/Post Dialysis Refused Weight 289.682032443350 BP Diastolic BP Location Tested BP Systolic BP Type 75 111 Fetus Heart Rate Present A 128 Fetus Movement A Yes Comments Still has some nausea/vomiti ng. Overall doing well. testing scheduled. Flowsheet Date 05/22/2020 Ordonez Score Blood Edema Fundus Height Fundus Units Glucose Ketones Leukocytes Nitrite Labor Signs Protein Cervic Dilation Cervic Effacement Cervic Station Type Weight in lbs Pre/Post Dialysis Refused BP Diastolic BP Location Tested BP Systolic BP Type Fetus Heart Rate Present Fetus Movement Comments Flowsheet Date 05/22/2020 Ordonez Score Blood Edema Fundus Height Fundus Units Glucose Ketones Leukocytes Nitrite Labor Signs Protein Cervic Dilation Cervic Effacement Cervic Station Type Weight in lbs Pre/Post Dialysis Refused BP Diastolic BP Location Tested BP Systolic BP Type Fetus Heart Rate Present Fetus Movement Comments Flowsheet Date 05/22/2020 Ordonez Score Blood Edema Fundus Height Fundus Units Glucose Ketones Leukocytes Nitrite Labor Signs Protein Cervic Dilation Cervic Effacement Cervic Station Type Weight in lbs Pre/Post Dialysis Refused Weight 291.050497785800 BP Diastolic BP Location Tested BP Systolic BP Type 70 120 Fetus Heart Rate Present Fetus Movement Comments Flowsheet Date 05/23/2020 Ordonez Score Blood Edema Fundus Height Fundus Units Glucose Ketones Leukocytes Nitrite Labor Signs Protein Cervic Dilation Cervic Effacement Cervic Station none 37 trace Type Weight in lbs Pre/Post Dialysis Refused Weight 288.611323496540 BP Diastolic BP Location Tested BP Systolic BP Type 74 110 Fetus Heart Rate Present A 147 Fetus Movement A Yes Comments Doing well. Declines flu cherrie t. Had tdap. Preadmit scheduled. Flowsheet Date 05/25/2020 Ordonez Score Blood Edema Fundus Height Fundus Units Glucose Ketones Leukocytes Nitrite Labor Signs Protein Cervic Dilation Cervic Effacement Cervic Station Type Weight in lbs Pre/Post Dialysis Refused BP Diastolic BP Location Tested BP Systolic BP Type Fetus Heart Rate Present Fetus Movement Comments Flowsheet Date 05/25/2020 Ordonez Score Blood Edema Fundus Height Fundus Units Glucose Ketones Leukocytes Nitrite Labor Signs Protein Cervic Dilation Cervic Effacement Cervic Station Type Weight in lbs Pre/Post Dialysis Refused BP Diastolic BP Location Tested BP Systolic BP Type Fetus Heart Rate Present Fetus Movement Comments Flowsheet Date 05/29/2020 Ordonez Score Blood Edema Fundus Height Fundus Units Glucose Ketones Leukocytes Nitrite Labor Signs Protein Cervic Dilation Cervic Effacement Cervic Station Type Weight in lbs Pre/Post Dialysis Refused BP Diastolic BP Location Tested BP Systolic BP Type Fetus Heart Rate Present Fetus Movement Comments Flowsheet Date 05/29/2020 Ordonez Score Blood Edema Fundus Height Fundus Units Glucose Ketones Leukocytes Nitrite Labor Signs Protein Cervic Dilation Cervic Effacement Cervic Station none trace Type Weight in lbs Pre/Post Dialysis Refused Weight 289.462080542779 BP Diastolic BP Location Tested BP Systolic BP Type 70 115 Fetus Heart Rate Present Fetus Movement A Yes Comments Still exp nausea/vomiting of f and on but overall doing well. Normal movement. No contractions. also scheduled today. Flowsheet Date 05/29/2020 Ordonez Score Blood Edema Fundus Height Fundus Units Glucose Ketones Leukocytes Nitrite Labor Signs Protein Cervic Dilation Cervic Effacement Cervic Station Type Weight in lbs Pre/Post Dialysis Refused BP Diastolic BP Location Tested BP Systolic BP Type Fetus Heart Rate Present Fetus Movement Comments Flowsheet Date 06/01/2020 Ordonez Score Blood Edema Fundus Height Fundus Units Glucose Ketones Leukocytes Nitrite Labor Signs Protein Cervic Dilation Cervic Effacement Cervic Station Type Weight in lbs Pre/Post Dialysis Refused BP Diastolic BP Location Tested BP Systolic BP Type Fetus Heart Rate Present Fetus Movement Comments Flowsheet Date 06/05/2020 Ordonez Score Blood Edema Fundus Height Fundus Units Glucose Ketones Leukocytes Nitrite Labor Signs Protein Cervic Dilation Cervic Effacement Cervic Station Type Weight in lbs Pre/Post Dialysis Refused BP Diastolic BP Location Tested BP Systolic BP Type Fetus Heart Rate Present Fetus Movement Comments Flowsheet Date 06/05/2020 Ordonez Score Blood Edema Fundus Height Fundus Units Glucose Ketones Leukocytes Nitrite Labor Signs Protein Cervic Dilation Cervic Effacement Cervic Station 34 trace Type Weight in lbs Pre/Post Dialysis Refused Weight 290.4136057390 BP Diastolic BP Location Tested BP Systolic BP Type 76 R arm 110 sitting Fetus Heart Rate Present A 140 Fetus Movement A Yes Comments reactive NST, blood pressure stable, continue testing, persistent nausea vomiting -rxed Zofran Flowsheet Date 06/08/2020 Ordonez Score Blood Edema Fundus Height Fundus Units Glucose Ketones Leukocytes Nitrite Labor Signs Protein Cervic Dilation Cervic Effacement Cervic Station Type Weight in lbs Pre/Post Dialysis Refused BP Diastolic BP Location Tested BP Systolic BP Type Fetus Heart Rate Present Fetus Movement Comments Abnormal NST. Runs of bradycardia around 100bpm with minimal variability, and then would jump up to normal FHR with moderate variability around 130bpm. Pt sent to L&D for evaluation. At L&D baby was having runs of tachycardia around 220bpm. SB spoke with Dr. Akhtar on 06/08 and pt to go to [facility] on 06/09 for ultrasound. Pt is scheduled on 06/09 @ 1:30 at [facility] to evaluation and determine plan. RO chi Flowsheet Date 06/12/2020 Ordonez Score Blood Edema Fundus Height Fundus Units Glucose Ketones Leukocytes Nitrite Labor Signs Protein Cervic Dilation Cervic Effacement Cervic Station Type Weight in lbs Pre/Post Dialysis Refused BP Diastolic BP Location Tested BP Systolic BP Type Fetus Heart Rate Present Fetus Movement Comments Flowsheet Date 06/12/2020 Ordonez Score Blood Edema Fundus Height Fundus Units Glucose Ketones Leukocytes Nitrite Labor Signs Protein Cervic Dilation Cervic Effacement Cervic Station 36 trace Type Weight in lbs Pre/Post Dialysis Refused Weight 287.801217511248 BP Diastolic BP Location Tested BP Systolic BP Type 70 R arm 105 sitting Fetus Heart Rate Present A 145 Fetus Movement A Yes Comments reactive NST with no arrhyth mima, good movement, to receive the rest of her care with the high-risk group. Flowsheet Date 06/23/2020 Ordonez Score Blood Edema Fundus Height Fundus Units Glucose Ketones Leukocytes Nitrite Labor Signs Protein Cervic Dilation Cervic Effacement Cervic Station Type Weight in lbs Pre/Post Dialysis Refused Weight 280.78598339062 BP Diastolic BP Location Tested BP Systolic BP Type 78 120 Fetus Heart Rate Present Fetus Movement Comments Menstrual History Last Menstrual Date Menses Monthly On Bcp Conception Prior Menses Frequency Hcg Plus Date Menarche Onset Age 0710/08/2019 Genetic Screening And Infection History Question Response Note Mental Retardation/Autism false Patient's Age Will Be 35 Years Or Older At Estim ated Date of Delivery false Thalassemia (Cameroonian, Gambian, Mediterranean, Or Background): MCV < 80 false Neural Tube Defect (Meningomyelocele, Spina Bifi da, Or Anencephaly) false Congenital Heart Defect false Down Syndrome false Reynaldo-Sachs (eg, Shinto, Cajun, Pashto-Antlers) f alse Francy Disease false Sickle Cell Disease Or Trait () false Hemophilia Or Other Blood Disorders false Muscular Dystrophy false Cystic Fibrosis false [place] false Intellectual Disability/Autism false If Yes, Was Person Tested For Fragile X? false Other Inherited Genetic Or Chromosomal Disorder false Maternal Metabolic Disorder (eg, Type 1 Diabetes , PKU) false Patient Or Baby's Father Had A Child With Defects Not Listed Above false Recurrent Loss, Or A Stillbirth false Medications (including Suppl ements, Vitamins, Herbs, OTC Drugs), Illicit/Recreational Drugs, Alcohol false If Yes, Agent(s) And Strength/Dosage false Any Other Genetic History false Live With Someone With TB Or Exposed To TB false Patient Or Partner Has History Of Genital Herpes false Rash Or Viral Illness Since Last Menstrual Perio d false History Of STD, Gonorrhea, Chlamydia, HPV, Syphi lis false Other Infection History false History of HIV false History of Hepatitis false Prior GBS-infected child false Hemoglobinopathy Or Carrier false Other Structural Defect false Recent Travel History Outside of Country false Delivery Information Delivery Date Delivery Type Labor Anesthesia Weeks Gestation Incision Type Labor Labor Length Hrs Delivered By Post Complications Tubal Sterilization Discharge Date Comments 1 36 Low Transvers e true Delivered r/t SVT Discharge Information Feeding Method Contraceptive Method Maternal HG B and HCT Levels
[2024-06-27 08:23] VITALS: BP 141/71; PULSE 83; RESP 18; TEMP 36.5; O2SAT 99
[2024-06-27 08:52] LABS: EDINFLUASCREEN Negative (Negative); EDINFLUBSCREEN Negative (Negative)
== END 2024-06-27 08:49 | disposition home or self-care (01) ==
PROVIDERS: Emergency Provider Nurse Practitioner Family; PCP Physician Assistant
DX: J06.9 Acute upper respiratory infection, unspecified (principal); R05.9 Cough, unspecified
CPT/HCPCS: 87804; 99213; G0463